=== PATIENT | male | born 1980 | race Caucasian/White ===

== ENCOUNTER 2020-08-29 05:00 | Inpatient (IN) | payer MEDICAID, OTHER, SELFPAY ==
[2020-08-29] VITALS (10 sets, daily range): BP systolic 108–146; BP diastolic 70–87; PULSE 72–92; RESP 14–18; TEMP 36.6–37.2; O2SAT 95–99; BMI 27.4
--- NOTE | 2020-08-29 05:29 | ED.PSYCH ---
HPI - Psych General Chief Complaint: Psychiatric Symptoms Stated Complaint: CRISIS Time Seen by Provider: 08/29/20 05:07 Source: patient and software engineer mobile Mode of arrival: ambulatory Limitations: no limitations History of Present Illness HPI Narrative: This is a 40-year-old male who presents with complaints of suicidal ideation and depression as well as anxiety and states that he has been consuming alcohol prior to arrival. Patient states he is been admitted multiple times and states his plan would be to choke himself or use any means necessary to take himself out of this life. He states he is very sad and depressed regarding the fact that the majority of his family lives in [place]. He states he has not been taking his prescribed medications because he has been abusing alcohol. Related Data Allergies Allergy/AdvReac Type Severity Reaction Status Date / Time Penicillins [PENICILLINS] Allergy Unknown UNKNOWN Verified 08/29/20 05:15 Review of Systems Review of Systems: And a positives and negatives as stated in HPI 10 point review of systems otherwise negative. PMFSH Past Medical History Source: nursing notes reviewed Social History Social History Advance Directives: No Advance Directives Information Provided: No Physical Exam Vital Signs: Vital Signs: Last Vital Signs Temp 98.4 F 08/29/20 05:15 Pulse 88 08/29/20 06:00 Resp 16 08/29/20 06:00 BP 140/70 H 08/29/20 06:00 Pulse Ox 98 08/29/20 06:00 Body Mass Index 27.4 VITAL SIGNS: Reviewed. GENERAL: Well developed, well nourished, in no acute distress. HEAD: Normocephalic/atraumatic, EYES: PERRLA, EOMI intact without pain, no nystagmus/pallor/icterus noted EARS: Ext canals without abnormality, TMs non-bulging and non-erythematous NOSE: Nares patent bilateral OROPHARYNX: no oral lesions noted, posterior pharynx clear and non-erythematous without noted tonsillar enlargement/erythema/exudates NECK: Supple, no adenopathy LUNGS: Normal breath sounds. No adventitious sounds or accessory muscle use. SpO2<98> CARDIOVASCULAR: Regular rate and rhythm without noted murmurs, no JVD or lower extremity edema. ABDOMEN: Soft, non-tender, non-distended with bowel sounds. No rigidity. No guarding. No palpable masses or hernias noted MUSCULOSKELETAL: No tenderness, deformities, or effusions noted on gross inspection. EXTREMITIES: No cyanosis, clubbing or edema. SKIN: Inspection of the skin reveals no rashes, ulcerations, jaundice, pallor, or petechiae. NEUROLOGIC: Alert and oriented x 4. Strength and sensation to light touch were grossly intact x 4. Course Course Course Narrative: This is a 40-year-old male with history and clinical presentation consistent with depression and substance abuse to include alcohol. On review of prior documentation he was last seen at our facility 03/12/2020 and was admitted to and subsequently discharged 03/19/2020. Patient was made Section-12 and placed on one-to-one. All investigations were reviewed other than noted transaminemia consistent with patient's alcohol use. Urinalysis is negative, U tox is positive for cocaine, and BAL-211. Patient is otherwise medically cleared for further evaluation by the crisis team. Signed out to Dr Reid: CALLY, KELY pending, Medically cleared MDM - Psych Restraints Face to Face Assessment: Face to Face Assessment: Current Situation: After assessment of the patient, a review of the pertinent medical record and a discussion with nursing staff, I feel the patient requires a restrain intervention. Reaction To: [] Medical Condition: [] Behavioral State: [] Continued Need: [] Lab Data Result diagrams: 08/29/20 05:44 08/29/20 05:44 Labs: Lab Results 08/29/20 08/29/20 08/29/20 Range/Units 05:44 05:44 05:44 WBC 5.6 (4.8-10.8) X10*3/uL RBC 5.06 (4.60-5.80) X10*6/uL Hgb 16.7 (14.0-18.0) g/dl Hct 46.2 (42-52) % MCV 91.3 (80-98) fL MCH 33.0 (27.0-33.0) pg MCHC 36.1 H (31.0-36.0) g/dl RDW 13.5 (11.0-16.0) % Plt Count 276 (160-400) X10*3/uL MPV 9.3 L (9.4-12.4) fL Immature Gran % (Auto) 0.2 (0.0-0.4) % Neut % (Auto) 47.1 (45-73) % Lymph % (Auto) 38.4 (20-40) % [place] % (Auto) 10.4 (2-11) % Eos % (Auto) 3.4 (0-4) % Baso % (Auto) 0.5 (0-2) % Lymph # (Auto) 2.2 (1.2-4.9) X10*3/uL [place] # (Auto) 0.6 (0.1-1.2) X10*3/uL Eos # (Auto) 0.2 (0.0-0.4) X10*3/uL Baso # (Auto) 0.0 (0.0-0.2) X10*3/uL Abs Immat Gran (auto) 0.01 (0.00-0.03) X10*3/uL Absolute Neuts (auto) 2.6 (2.0-8.3) X10*3/uL Absolute Nucleated RBC 0.000 (0.0-0.012) X10*3/uL Nucleated RBC % (auto) 0.0 (0.0-0.2) /100WBC Sodium 140 (135-145) mmol/L Potassium 4.1 (3.3-5.1) mmol/l Chloride 101 (96-108) mmol/L Carbon Dioxide 26 (22-29) mmol/L Anion Gap 17 (12-20) BUN 3 L (9-16) mg/dL Creatinine 0.80 (0.5-1.4) mg/dL Estim Creat Clear Calc 106.2 Estimated GFR > 60 Random Glucose 124 H (60-115) mg/dL Calcium 8.8 (8.4-10.2) mg/dL Total Bilirubin 0.7 (0.0-1.0) mg/dL AST 59 H (5-37) U/L ALT 61 H (0-40) U/L Alkaline Phosphatase 80 (39-117) U/L Total Protein 8.6 H (6.5-8.0) g/dL Albumin 4.6 (3.5-5.0) g/dL Urine Color Urine Appearance Urine pH (5.0-8.0) Ur Specific [place] (1.005-1.025) Urine Protein (NEG-TRACE) MG/DL Urine Glucose (UA) (NEG) MG/DL Urine Ketones (NEG) MG/DL Urine Blood (NEG) Urine Nitrite (NEG) Ur Leukocyte Esterase (NEG) Urine Opiates Screen (Not Detect) Ur Barbiturates Screen (Not Detect) Ur Phencyclidine Scrn (Not Detect) Ur Amphetamines Screen (Not Detect) U Benzodiazepines Scrn (Not Detect) Urine Cocaine Screen (Not Detect) U Marijuana (THC) Screen (Not Detect) Ethyl Alcohol 211 mg/dL 08/29/20 08/29/20 Range/Units 05:49 05:49 WBC (4.8-10.8) X10*3/uL RBC (4.60-5.80) X10*6/uL Hgb (14.0-18.0) g/dl Hct (42-52) % MCV (80-98) fL MCH (27.0-33.0) pg MCHC (31.0-36.0) g/dl RDW (11.0-16.0) % Plt Count (160-400) X10*3/uL MPV (9.4-12.4) fL Immature Gran % (Auto) (0.0-0.4) % Neut % (Auto) (45-73) % Lymph % (Auto) (20-40) % [place] % (Auto) (2-11) % Eos % (Auto) (0-4) % Baso % (Auto) (0-2) % Lymph # (Auto) (1.2-4.9) X10*3/uL [place] # (Auto) (0.1-1.2) X10*3/uL Eos # (Auto) (0.0-0.4) X10*3/uL Baso # (Auto) (0.0-0.2) X10*3/uL Abs Immat Gran (auto) (0.00-0.03) X10*3/uL Absolute Neuts (auto) (2.0-8.3) X10*3/uL Absolute Nucleated RBC (0.0-0.012) X10*3/uL Nucleated RBC % (auto) (0.0-0.2) /100WBC Sodium (135-145) mmol/L Potassium (3.3-5.1) mmol/l Chloride (96-108) mmol/L Carbon Dioxide (22-29) mmol/L Anion Gap (12-20) BUN (9-16) mg/dL Creatinine (0.5-1.4) mg/dL Estim Creat Clear Calc Estimated GFR Random Glucose (60-115) mg/dL Calcium (8.4-10.2) mg/dL Total Bilirubin (0.0-1.0) mg/dL AST (5-37) U/L ALT (0-40) U/L Alkaline Phosphatase (39-117) U/L Total Protein (6.5-8.0) g/dL Albumin (3.5-5.0) g/dL Urine Color YELLOW Urine Appearance CLEAR Urine pH 6.0 (5.0-8.0) Ur Specific [place] 1.010 (1.005-1.025) Urine Protein NEG (NEG-TRACE) MG/DL Urine Glucose (UA) NEG (NEG) MG/DL Urine Ketones NEG (NEG) MG/DL Urine Blood NEG (NEG) Urine Nitrite NEG (NEG) Ur Leukocyte Esterase NEG (NEG) Urine Opiates Screen Not Detected (Not Detect) Ur Barbiturates Screen Not Detected (Not Detect) Ur Phencyclidine Scrn Not Detected (Not Detect) Ur Amphetamines Screen Not Detected (Not Detect) U Benzodiazepines Scrn Not Detected (Not Detect) Urine Cocaine Screen POSITIVE H (Not Detect) U Marijuana (THC) Screen Not Detected (Not Detect) Ethyl Alcohol mg/dL
[2020-08-29 05:49] LABS: Basophils Percent Auto 0.5 % (0-2); Eosinophils Absolute Auto 0.2 X10*3/uL (0.0-0.4); Eosinophils Percent Auto 3.4 % (0-4); Hematocrit 46.2 % (42-52); Hemoglobin 16.7 g/dl (14.0-18.0); Imm Gran Abs Auto 0.01 X10*3/uL (0.00-0.03); Imm Gran Pct Auto 0.2 % (0.0-0.4); Lymphocytes Absolute Auto 2.2 X10*3/uL (1.2-4.9); Lymphocytes Percent Auto 38.4 % (20-40); MANUAL DIFF FLAG NO; Mean Corpuscular HGB Conc 36.1 g/dl (31.0-36.0); Mean Corpuscular Volume 91.3 fL (80-98); Mean Platelet Volume 9.3 fL (9.4-12.4); Monocytes Absolute Auto 0.6 X10*3/uL (0.1-1.2); Monocytes Percent Auto 10.4 % (2-11); Neutrophils Absolute Auto 2.6 X10*3/uL (2.0-8.3); Neutrophils Percent Auto 47.1 % (45-73); Platelet Count 276 X10*3/uL (160-400); Red Blood Count 5.06 X10*6/uL (4.60-5.80); Red Cell Distribution Width 13.5 % (11.0-16.0); White Blood Count 5.6 X10*3/uL (4.8-10.8)
[2020-08-29 06:01] LABS: Appearance Urine CLEAR; Color Urine YELLOW; Glucose Urine UA NEG (NEG); Leukocyte Esterase Urine NEG (NEG); Nitrite Urine NEG (NEG); UACC Culture Trigger NO; Urine Blood NEG (NEG); Urine Ketones NEG (NEG); Urine Protein NEG (NEG-TRACE)
[2020-08-29 06:08] LABS: Amphetamine Screen Urine Not Detected (Not Detect); Barbiturates, Urine Not Detected (Not Detect); Benzodiazepines Screen Urine Not Detected (Not Detect); Cannabinoid Screen Urine Not Detected (Not Detect); Cocaine Screen Urine POSITIVE (Not Detect); Opiate Screen Urine Not Detected (Not Detect); Phencyclidine Screen Urine Not Detected (Not Detect)
[2020-08-29 06:20] LABS: Ethanol 211 mg/dL
[2020-08-29 06:25] LABS: Alanine Aminotransferase 61 U/L (0-40); Albumin Level 4.6 g/dL (3.5-5.0); Alkaline Phosphatase 80 U/L (39-117); Anion Gap 17 (12-20); Aspartate Amino Transferase 59 U/L (5-37); Bilirubin Total 0.7 mg/dL (0.0-1.0); Blood Urea Nitrogen 3 mg/dL (9-16); Calcium 8.8 mg/dL (8.4-10.2); Carbon Dioxide 26 mmol/L (22-29); Chloride 101 mmol/L (96-108); Creatinine Clr Calc Pharmacy 106.2; Estimated Glomerular Filt Rate > 60; Glucose Random 124 mg/dL (60-115); Potassium 4.1 mmol/l (3.3-5.1); Sodium 140 mmol/L (135-145); Total Protein 8.6 g/dL (6.5-8.0)
--- NOTE | 2020-08-29 07:26 | PC.NURSE ---
pt is sleeping, resp are equal and non labored awaiting bhn eval
[2020-08-29 08:50] LABS: COVID-19 Test Negative (Negative)
--- NOTE | 2020-08-29 11:03 | PC.NURSE ---
Verified consult w/ bhn. bhn states they are unsure when they will have staff available to consult. Pt resting in stretcher at this time, no distress apparent.
--- NOTE | 2020-08-29 15:45 | PC.NURSE ---
[facility] at bedside.
--- NOTE | 2020-08-29 16:39 | PC.NURSE ---
Per [facility] pt is section 12 inpatient bedsearch. This rn attempting to do med rec at this time, pharmacy closed and pt is poor historian.
[2020-08-29] MEDS: LORazepam 1 MG TABLET PO (16:51)
--- NOTE | 2020-08-29 16:55 | PC.NURSE ---
Pt tearful, states he feels very anxious and depressed- given 1mg po ativan, offered snack and other food options-declined. Pt declined to eat lunch as well.
--- NOTE | 2020-08-29 17:04 | PC.NURSE ---
Pt unable to tell this rn names and doses of medication but says its the same as last time , clarified w/ business law professor pt is referring to visit in February. Pt pharmacy is closed. Med rec completed off last admission discharge.
[2020-08-29] MEDS: hydrOXYzine HCL 25 MG TABLET 75 MG PO (21:13)
[2020-08-29] MEDS: cloNIDine HCL 0.1 MG TABLET PO (21:13)
--- NOTE | 2020-08-29 21:17 | PC.NURSE ---
Pt denies complaints or needs at this time, given 2 cups of water and drank both. declined offers for food. pending inpatient bedsearch
--- NOTE | 2020-08-29 23:53 | PC.NURSE ---
REPORT TAKEN FROM SOPHIA PHAM, FIRST CONTACT WITH PT. RESTING IN BED EYES CLOSED SKIN PWD RESPIRATIONS EVEN UNLABORED. PO AT BEDSIDE FOR SAFETY. INPT BEDSEARCH CONTINUES.
--- NOTE | 2020-08-30 01:09 | PC.NURSE ---
PT CONTINUES TO REST IN BED SKIN PWD RESPIRATIONS EVEN UNLABORED. NO DISTRESS NOTED. PO AT BEDSIDE FOR SAFETY. INPT BEDSEARCH CONTINUES.
[2020-08-30 04:00] VITALS: RESP 16
--- NOTE | 2020-08-30 04:34 | PC.NURSE ---
PT RESTING IN BED EYES CLOSED, SKIN PWD RESPIRATIONS EVEN UNLABORED. PO AT BEDSIDE FOR SAFETY, INPT BEDSEARCH CONTINUES.
--- NOTE | 2020-08-30 05:34 | PC.NURSE ---
AMB TO BATHROOM WITH STEADY GAIT, OFFERS NO COMPLAINTS AT THIS TIME. PO AT BEDSIDE FOR SAFETY. INPT BEDSEARCH CONTINUES.
[2020-08-30 07:04] VITALS: RESP 15
[2020-08-30 09:00] VITALS: BP 113/72; PULSE 68
[2020-08-30] MEDS: Metoprolol Succinate ER 25 MG TAB.ER.24H PO (09:00)
[2020-08-30] MEDS: cloNIDine HCL 0.1 MG TABLET PO ×2 (09:00→20:06)
[2020-08-30] MEDS: Omeprazole 20 MG CAPSULE.DR PO (09:00)
[2020-08-30] MEDS: Cyanocobalamin (Vitamin B-12) 1,000 MCG TABLET 1000 MCG PO (09:00)
[2020-08-30 09:02] VITALS: BP 113/72; PULSE 69; RESP 16; O2SAT 98
--- NOTE | 2020-08-30 11:41 | PC.NURSE ---
Pt ambulated to pod with steady gait, denies complaints.
[2020-08-30] MEDS: LORazepam 1 MG TABLET PO ×2 (18:26→21:48)
[2020-08-30 20:06] VITALS: BP 113/75; PULSE 86
[2020-08-30] MEDS: hydrOXYzine HCL 25 MG TABLET 75 MG PO (20:07)
[2020-08-31 00:21] VITALS: BP 106/93; PULSE 83; RESP 17; TEMP 36.4; O2SAT 96
--- NOTE | 2020-08-31 00:44 | PC.NURSE ---
08/30/2020 1900: pt sleeping at this time. skin p/w/d. airway patent. 2114: Night meds given. 2147: reporting anxiety medicated with prn. 0: sleeping at this time. skin p/w/d. airway patent.
[2020-08-31] MEDS: LORazepam 1 MG TABLET PO ×2 (04:36→17:12)
--- NOTE | 2020-08-31 05:04 | PC.NURSE ---
08/31/20 0100: Pt sleeping at this time. airway patent. 0300: pt sleeping at this time. skin p/w/d. 0500: patient being montiored for effect of prn anxiety medication. denies further needs.
--- NOTE | 2020-08-31 07:01 | PC.NURSE ---
Report received. PT is sleeping in bed. Breathing is even and unlabored. Inpatient bed search in progress.
[2020-08-31 08:25] VITALS: BP 114/89; PULSE 88
[2020-08-31] MEDS: Metoprolol Succinate ER 25 MG TAB.ER.24H PO (08:25)
[2020-08-31 08:27] VITALS: BP 114/89; PULSE 88
[2020-08-31] MEDS: Omeprazole 20 MG CAPSULE.DR PO (08:27)
[2020-08-31] MEDS: cloNIDine HCL 0.1 MG TABLET PO ×2 (08:27→21:29)
[2020-08-31] MEDS: Cyanocobalamin (Vitamin B-12) 1,000 MCG TABLET 1000 MCG PO (08:27)
[2020-08-31 08:30] VITALS: BP 114/89; PULSE 88; RESP 17; TEMP 36.6; O2SAT 99
--- NOTE | 2020-08-31 11:23 | PC.NURSE ---
Addendum entered by Jose Juan Fernandez 08/31/20 11:31: Seen by [facility] for [facility]. Patient will remain inpatient bed search. Original Note: Seen by Shira for [facility].
--- NOTE | 2020-08-31 17:35 | ECG_ITS ---
Test Reason : MEDCLEARANCEE Blood Pressure : / mmHG Vent. Rate : 073 BPM Atrial Rate : 073 BPM P-R Int : 174 ms QRS Dur : 094 ms QT Int : 374 ms P-R-T Axes : 056 043 020 degrees QTc Int : 412 ms Normal sinus rhythm with sinus arrhythmia Normal ECG When compared with ECG of 12-MAR-2020 22:25, No significant change was found Referred By: Mal Hernandez Electronically Signed By:Bhaskar Copeland
[2020-08-31] MEDS: LORazepam 1 MG TABLET 0.5 MG PO (19:30)
[2020-08-31] MEDS: hydrOXYzine HCL 25 MG TABLET 75 MG PO (21:28)
[2020-08-31 21:29] VITALS: BP 120/69; PULSE 85
[2020-08-31] MEDS: LORazepam 0.5 MG TABLET PO (23:32)
--- NOTE | 2020-08-31 23:35 | PC.ADMIT ---
Patient is a 40 year old single Maltese speaking male admitted as a CV admission to at 1840 and placed on 5 minute safety checks. Patient was a bit anxious and irritable. He had been in the [facility] ED x 2 days waiting on a bed on . He had presented to the ED with SI to choke himself. He also reported decreased sleep and appetite. He has a long history of multiple admissions to and other local units. He had a history of drinking ETOH and using rack/cocaine. His BAL in the ED was 211. Patient was somehwhat sullen on approach and requested Ativan. His admission was reviewed and orders were obtained. Lupe Coyne APRN reviewed medications and orders were written. Patient will be on 15 minute safety checks. Paperwork completed.
[2020-09-01] MEDS: hydrOXYzine HCL 25 MG TABLET PO (01:23)
[2020-09-01 04:55] VITALS: BP 103/61; PULSE 101; RESP 18; TEMP 36.4; O2SAT 98
[2020-09-01] MEDS: LORazepam 0.5 MG TABLET PO ×3 (04:58→16:58)
[2020-09-01 09:08] VITALS: BP 106/68; PULSE 77
[2020-09-01] MEDS: Omeprazole 20 MG CAPSULE.DR PO (09:08)
[2020-09-01] MEDS: Metoprolol Succinate ER 25 MG TAB.ER.24H PO (09:08)
[2020-09-01] MEDS: Cyanocobalamin (Vitamin B-12) 1,000 MCG TABLET 1000 MCG PO (09:08)
[2020-09-01] MEDS: cloNIDine HCL 0.1 MG TABLET PO ×2 (09:09→20:14)
[2020-09-01] MEDS: Flu Vacc QS2020-21(6mos up)/PF 0.5 ML SYRINGE IM (11:29)
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
[2020-09-01] MEDS: Sertraline HCL 50 MG TABLET PO (13:25)
[2020-09-01 18:00] VITALS: BP 114/65; PULSE 70; TEMP 37.4
[2020-09-01] MEDS: Acetaminophen 325 MG TABLET PO (18:09)
[2020-09-01] MEDS: OLANZapine 10 MG TABLET PO (20:13)
[2020-09-01 20:14] VITALS: BP 114/65; PULSE 70
[2020-09-01] MEDS: Prazosin HCL 1 MG CAPSULE PO (20:14)
[2020-09-01] MEDS: Topiramate 25 MG TABLET PO (20:15)
[2020-09-01] MEDS: hydrOXYzine HCL 25 MG TABLET 75 MG PO (20:15)
[2020-09-02 06:40] VITALS: BP 93/55; PULSE 54; RESP 18; TEMP 36.7; O2SAT 97
[2020-09-02 10:06] VITALS: BP 103/65; PULSE 77
[2020-09-02] MEDS: Omeprazole 20 MG CAPSULE.DR PO (10:06)
[2020-09-02] MEDS: Sertraline HCL 50 MG TABLET PO (10:06)
[2020-09-02] MEDS: Metoprolol Succinate ER 25 MG TAB.ER.24H PO (10:06)
[2020-09-02] MEDS: Cyanocobalamin (Vitamin B-12) 1,000 MCG TABLET 1000 MCG PO (10:06)
[2020-09-02] MEDS: Topiramate 25 MG TABLET PO (10:07)
--- NOTE | 2020-09-02 11:36 | HO.PSYCHPN ---
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 He reports he was able to sleep last evening and nightmares have decreased. BP this a.m 93/55 54-with addition of Prazosin. Will discontinue Clonidine, continue Prazosin, Metoprolol and re-evaluate. In our meeting on 09/01, pt was asked by Rohit FLORES if he had interest in [facility] services. He declined at that time, however, today, reports he would like to follow up with rehab, residential services upon discharge and is interested in [facility] services. Tolerated Olanzapine last evening. Re-review of diagnostics, will add MVI and repeat lipids, TSH. Medication Compliance: Yes Side effects from medications: No Attending Groups: Yes (minimal participation on his first day.) Review of Systems Constitutional: Reports as per HPI and Reports fatigue Cardiovascular: Reports other (hypotensive this a.m.) Reports behavioral changes Psychiatric: Reports anxiety, Reports behavioral changes, Reports hopelessness, Reports anhedonia and Reports suicidal ideation (resolving SI, denied during eval on 09/01/20.) Endocrine: Reports fatigue Mental Status Exam Mental Status Exam Patient Appearance: Well Grooomed, Fatigued and Appropriate Patient Orientation: Person, Place, Time and Situation Level of Consciousness: Awake, Appropriate and Alert Patient Behavior: Appropriate, Talkative, Cooperative, Anxious and Good Eye Contact Mood Description: Withdrawn, Depressed, Anxious and Flat Affect Description: Flat Patient Cognition Impaired: Yes Ability to Follow Directions: Good Speech Pattern: Clear, Appropriate, Spontaneous Speech and Coherent Memory Description: Intact and Immediate Intact Hallucinations: None Delusions: Not Present Thought Process: Distracted and Rumination Thought Content: positive for Depue, positive for Circumstantial, positive for Perseveration and positive for Suicidal Ideation (resolving, beginning to work on his plan of care.) Depressive Symptoms: Increased Anxiety, Hopelessness, Isolating-Friends/Family, Unhappiness, Increased Fatigue, Thoughts of /Suicide (resolving) and Loss of Energy Judgement: Poor Diagnostics Vital Signs (24Hr): Vital Signs - 24 hr 09/01/20 18:00 09/01/20 20:14 09/02/20 06:40 Temperature 99.4 F 98.0 F Pulse Rate 70 70 54 Respiratory Rate 18 Blood Pressure 114/65 114/65 93/55 L Pulse Oximetry 97 09/02/20 10:06 Temperature Pulse Rate 77 Respiratory Rate Blood Pressure 103/65 Pulse Oximetry Body Mass Index 27.4 Labs Results: 08/29/20 05:44 08/29/20 05:44 Labs: AST/ALT decreased from 02/2020 admission. T. Protein decreased from 02/2020 admission. Medications Medications Current Medications Generic Name Dose Route Start Last Admin Trade Name Freq PRN Reason Stop Dose Admin Acetaminophen 325 mg 08/31/20 19:00 09/01/20 18:09 Acetaminophen 325 Mg Tablet PO 325 mg Q6H PRN Administration Headache/Pain Mild Scale (1-3) Al Hydroxide/Mg Hydroxide 30 ml 08/31/20 19:00 Magnesium Hydrox/Alum Hydrox 30 Ml Oral.Susp PO Q6H PRN Heartburn/Nausea Cyanocobalamin 1,000 mcg 08/30/20 09:00 09/02/20 10:06 Cyanocobalamin (Vitamin B-12) 1,000 Mcg Tablet PO 1,000 mcg DAILY CLARITA Administration Hydroxyzine HCl 75 mg 08/29/20 21:00 09/01/20 20:15 Hydroxyzine Hcl 25 Mg Tablet PO 75 mg BEDTIME CLARITA Administration Hydroxyzine HCl 25 mg 08/31/20 19:00 09/01/20 01:23 Hydroxyzine Hcl 25 Mg Tablet PO 25 mg BEDTIME PRN Administration Anxiety Lorazepam 0.5 mg 08/31/20 19:32 09/01/20 16:58 Lorazepam 0.5 Mg Tablet PO 0.5 mg Q3H PRN Administration Anxiety Magnesium Hydroxide 30 ml 08/31/20 19:00 Milk Of Magnesia 30 Ml Oral.Susp PO DAILY PRN Constipation Metoprolol Succinate 25 mg 08/30/20 09:00 09/02/20 10:06 Metoprolol Succinate Er 25 Mg Tab.Er.24h PO 25 mg DAILY CLARITA Administration Protocol Multivitamins/Minerals 1 tab 09/02/20 09:00 09/02/20 10:32 Multivitamin With Minerals Tablet PO 1 tab DAILY CLARITA Administration Nicotine 14 mg 08/31/20 19:00 Nicotine 14 Mg Patch.Td24 TRANSDERMA DAILY PRN Nicotine Cravings Nicotine Polacrilex 2 mg 08/31/20 19:00 Nicotine Polacrilex 2 Mg Gum BUCCAL Q2H PRN Nicotine Cravings Olanzapine 10 mg 09/01/20 21:00 09/01/20 20:13 Olanzapine 10 Mg Tablet PO 10 mg BEDTIME CLARITA Administration Omeprazole 20 mg 08/30/20 09:00 09/02/20 10:06 Omeprazole 20 Mg Capsule.Dr PO 20 mg DAILY CLARITA Administration Prazosin HCl 1 mg 09/01/20 21:00 09/01/20 20:14 Prazosin Hcl 1 Mg Capsule PO 1 mg BEDTIME CLARITA Administration Protocol Sertraline HCl 50 mg 09/02/20 09:00 09/02/20 10:06 Sertraline Hcl 50 Mg Tablet PO 50 mg DAILY CLARITA Administration Topiramate 25 mg 09/01/20 20:00 09/02/20 10:07 Topiramate 25 Mg Tablet PO 25 mg DAILY CLARITA Administration Trazodone HCl 50 mg 08/31/20 19:00 Trazodone Hcl 50 Mg Tablet PO BEDTIME PRN Insomnia Allergies Allergies Allergy/AdvReac Type Severity Reaction Status Date / Time Penicillins [PENICILLINS] Allergy Unknown UNKNOWN Verified 08/29/20 05:15 Assessment & Plan Assessment & Plan (1) Schizophrenia, acute: Status: Acute Code(s): F23 - Brief psychotic disorder Assessment and Plan: -Continue Olanzapine 10 mg hs -Begin Olanzapine 2.5 mg bid prn agitation/anxiety to continue to work on symptom mgt. -Will initiate [facility] application with Social Service Team -Labs: TSH, Lipids (2) Severe recurrent major depression: Status: Acute Code(s): F33.2 - Major depressive disorder, recurrent severe without psychotic features Assessment and Plan: -Continue Sertraline, consider titration as pt tolerates dosing. (3) Cocaine abuse: Status: Acute Code(s): F14.10 - Cocaine abuse, uncomplicated Assessment and Plan: -Continue Topiramate (4) Alcohol abuse: Status: Acute Code(s): F10.10 - Alcohol abuse, uncomplicated Assessment and Plan: -Pt requests residential/CSS placement upon discharge. Will discuss with Social Service Team. -Begin MVI with Minerals, 1 tablet daily (5) Hypotension: Status: Acute Code(s): I95.9 - Hypotension, unspecified Assessment and Plan: -Discontinue Clonidine -Continue Prazosin, Metoprolol Greater than 50% of the session was spent on counseling and/or coordination of care
[2020-09-02 16:20] LABS: Cholesterol 231 mg/dL; HDL Cholesterol 31 mg/dL; Triglycerides 490 mg/dL
[2020-09-02 16:48] LABS: Thyroid Stimulating Hormone 2.25 uIU/mL (0.32-4.0)
[2020-09-02] MEDS: LORazepam 0.5 MG TABLET PO (18:38)
[2020-09-02] MEDS: Acetaminophen 325 MG TABLET PO (18:40)
[2020-09-02] MEDS: OLANZapine 2.5 MG TABLET PO (19:54)
[2020-09-02 21:35] VITALS: BP 107/67; PULSE 64; TEMP 36.9
[2020-09-02] MEDS: OLANZapine 10 MG TABLET PO (21:40)
[2020-09-02] MEDS: hydrOXYzine HCL 25 MG TABLET 75 MG PO (21:40)
[2020-09-02 21:41] VITALS: BP 107/67; PULSE 64
[2020-09-02] MEDS: Prazosin HCL 1 MG CAPSULE PO (21:41)
[2020-09-03 06:30] VITALS: BP 116/65; PULSE 64; RESP 16; TEMP 36.6; O2SAT 97
[2020-09-03 07:00] VITALS: BMI 28.6
[2020-09-03 09:04] VITALS: BP 116/65; PULSE 64
[2020-09-03] MEDS: Metoprolol Succinate ER 25 MG TAB.ER.24H PO (09:04)
[2020-09-03] MEDS: Omeprazole 20 MG CAPSULE.DR PO (09:04)
[2020-09-03] MEDS: Sertraline HCL 50 MG TABLET PO (09:04)
[2020-09-03] MEDS: Cyanocobalamin (Vitamin B-12) 1,000 MCG TABLET 1000 MCG PO (09:04)
[2020-09-03] MEDS: Topiramate 25 MG TABLET PO (09:04)
[2020-09-03] MEDS: OLANZapine 2.5 MG TABLET PO (11:12)
[2020-09-03] MEDS: LORazepam 0.5 MG TABLET PO ×3 (11:12→23:47)
--- NOTE | 2020-09-03 16:28 | P.PNPSI_ITS ---
Subjective Subjective Date of Service: 09/03/20 Reason For Visit: Schizophrenia, SI, Alcohol,Cocaine Abuse Subjective Notes: Conditional Voluntary Interim History: Reports anxiety, depression, nightmares are issues that continue to need work. Able to sleep. Present and available in milieu. Medication Compliance: Yes Side effects from medications: No Attending Groups: Yes Review of Systems Reports behavioral changes Psychiatric: Reports anxiety, Reports behavioral changes, Reports depression and Reports other (nightmares) Mental Status Exam Mental Status Exam Patient Appearance: Well Grooomed and Appropriate Patient Orientation: Person, Place, Time and Situation Level of Consciousness: Awake and Alert Patient Behavior: Appropriate and Talkative Mood Description: Depressed and Anxious Affect Description: Constricted Patient Cognition Impaired: No Ability to Follow Directions: Good Speech Pattern: Appropriate (Burring Wheel Operator required) Memory Description: Intact Hallucinations: None Delusions: Not Present Thought Process: Intact Thought Content: positive for Intact Depressive Symptoms: Increased Anxiety Judgement: Fair Diagnostics Vital Signs (24Hr): Vital Signs - 24 hr 09/02/20 21:35 09/02/20 21:41 09/03/20 06:30 Temperature 98.5 F 97.9 F Pulse Rate 64 64 64 Respiratory Rate 16 Blood Pressure 107/67 107/67 116/65 Pulse Oximetry 97 09/03/20 09:04 Temperature Pulse Rate 64 Respiratory Rate Blood Pressure 116/65 Pulse Oximetry Body Mass Index 28.6 Labs Results: 08/29/20 05:44 08/29/20 05:44 Labs: Laboratory Results - last 48 hr 09/02/20 15:40 Triglycerides 490 Cholesterol 231 LDL Cholesterol, Calc TNP HDL Cholesterol 31 TSH 2.25 Medications Medications Current Medications Generic Name Dose Route Start Last Admin Trade Name Ronaldoq PRN Reason Stop Dose Admin Acetaminophen 325 mg 08/31/20 19:00 09/02/20 18:40 Acetaminophen 325 Mg Tablet PO 325 mg Q6H PRN Administration Headache/Pain Mild Scale (1-3) Al Hydroxide/Mg Hydroxide 30 ml 08/31/20 19:00 Magnesium Hydrox/Alum Hydrox 30 Ml Oral.Susp PO Q6H PRN Heartburn/Nausea Cyanocobalamin 1,000 mcg 08/30/20 09:00 09/03/20 09:04 Cyanocobalamin (Vitamin B-12) 1,000 Mcg Tablet PO 1,000 mcg DAILY CLARITA Administration Hydroxyzine HCl 75 mg 08/29/20 21:00 09/02/20 21:40 Hydroxyzine Hcl 25 Mg Tablet PO 75 mg BEDTIME CLARITA Administration Hydroxyzine HCl 25 mg 08/31/20 19:00 09/01/20 01:23 Hydroxyzine Hcl 25 Mg Tablet PO 25 mg BEDTIME PRN Administration Anxiety Lorazepam 0.5 mg 08/31/20 19:32 09/03/20 11:12 Lorazepam 0.5 Mg Tablet PO 0.5 mg Q3H PRN Administration Anxiety Magnesium Hydroxide 30 ml 08/31/20 19:00 Milk Of Magnesia 30 Ml Oral.Susp PO DAILY PRN Constipation Metoprolol Succinate 25 mg 08/30/20 09:00 09/03/20 09:04 Metoprolol Succinate Er 25 Mg Tab.Er.24h PO 25 mg DAILY CLARITA Administration Protocol Multivitamins/Minerals 1 tab 09/02/20 09:00 09/03/20 09:04 Multivitamin With Minerals Tablet PO 1 tab DAILY CLARITA Administration Nicotine 14 mg 08/31/20 19:00 Nicotine 14 Mg Patch.Td24 TRANSDERMA DAILY PRN Nicotine Cravings Nicotine Polacrilex 2 mg 08/31/20 19:00 Nicotine Polacrilex 2 Mg Gum BUCCAL Q2H PRN Nicotine Cravings Olanzapine 10 mg 09/01/20 21:00 09/02/20 21:40 Olanzapine 10 Mg Tablet PO 10 mg BEDTIME CLARITA Administration Olanzapine 2.5 mg 09/02/20 12:17 09/03/20 11:12 Olanzapine 2.5 Mg Tablet PO 2.5 mg BID PRN Administration Agitation / Anxiety Omeprazole 20 mg 08/30/20 09:00 09/03/20 09:04 Omeprazole 20 Mg Capsule.Dr PO 20 mg DAILY CLARITA Administration Prazosin HCl 1 mg 09/01/20 21:00 09/02/20 21:41 Prazosin Hcl 1 Mg Capsule PO 1 mg BEDTIME CLARITA Administration Protocol Sertraline HCl 50 mg 09/02/20 09:00 09/03/20 09:04 Sertraline Hcl 50 Mg Tablet PO 50 mg DAILY CLARITA Administration Topiramate 25 mg 09/01/20 20:00 09/03/20 09:04 Topiramate 25 Mg Tablet PO 25 mg DAILY CLARITA Administration Trazodone HCl 50 mg 08/31/20 19:00 Trazodone Hcl 50 Mg Tablet PO BEDTIME PRN Insomnia Allergies Allergies Allergy/AdvReac Type Severity Reaction Status Date / Time Penicillins [PENICILLINS] Allergy Unknown UNKNOWN Verified 08/29/20 05:15 Assessment & Plan Assessment & Plan (1) Schizophrenia, acute: Status: Acute Code(s): F23 - Brief psychotic disorder Assessment and Plan: Discontinue Olanzapine Abilify 10 mg HS (2) Severe recurrent major depression: Status: Acute Code(s): F33.2 - Major depressive disorder, recurrent severe without psychotic features Assessment and Plan: - [facility] Application for services is completed by team -Increase Sertraline to 100 mg daily (3) Hypertriglyceridemia: Status: Acute Code(s): E78.1 - Pure hyperglyceridemia Assessment and Plan: Zyprexa change to Abilify Fenofibrate initiation (4) Alcohol abuse: Status: Acute Code(s): F10.10 - Alcohol abuse, uncomplicated Assessment and Plan: Team is working on CSS placement Greater than 50% of the session was spent on counseling and/or coordination of care Patient educated on: medication risk/benefits Informed Consent: further education needed
[2020-09-03 18:00] VITALS: BP 125/82; PULSE 73; TEMP 36.7
[2020-09-03] MEDS: Acetaminophen 325 MG TABLET PO (19:15)
[2020-09-03 19:58] VITALS: BP 103/63; PULSE 75
[2020-09-03] MEDS: Prazosin HCL 1 MG CAPSULE PO (19:58)
[2020-09-03] MEDS: ARIPiprazole 10 MG TABLET PO (19:59)
[2020-09-03] MEDS: hydrOXYzine HCL 25 MG TABLET 75 MG PO (20:13)
[2020-09-03] MEDS: hydrOXYzine HCL 25 MG TABLET PO (23:47)
[2020-09-04] MEDS: Acetaminophen 325 MG TABLET PO (01:32)
[2020-09-04 06:10] VITALS: RESP 16
[2020-09-04 08:22] VITALS: BP 103/63; PULSE 75
[2020-09-04] MEDS: Cyanocobalamin (Vitamin B-12) 1,000 MCG TABLET 1000 MCG PO (08:22)
[2020-09-04] MEDS: Topiramate 25 MG TABLET PO (08:22)
[2020-09-04] MEDS: Metoprolol Succinate ER 25 MG TAB.ER.24H PO (08:22)
[2020-09-04] MEDS: Omeprazole 20 MG CAPSULE.DR PO (08:22)
[2020-09-04] MEDS: Fenofibrate 54 MG TABLET PO (08:22)
[2020-09-04] MEDS: Sertraline HCL 100 MG TABLET PO (08:22)
[2020-09-04] MEDS: LORazepam 0.5 MG TABLET PO ×2 (10:52→20:06)
--- NOTE | 2020-09-04 11:16 | P.PNPSI_ITS ---
Subjective Subjective Date of Service: 09/04/20 Reason For Visit: Schizophrenia, SI, Alcohol,Cocaine Abuse Subjective Notes: Conditional Voluntary Interim History: Toni continues to report insomnia and nightmares. Team reports he is able to sleep, however is sleeping on evening time with difficulty at night. Today, he asks if he has a CSS placement at this time, however, social welfare research worker has not heard any new reports. Tolerating med changes of 09/03 thus far. Medication Compliance: Yes Side effects from medications: No Attending Groups: Intermittent Review of Systems Review of Systems Yes all other systems are reviewed and are negative; No unobtainable due to endotracheal tube, Unobtainable due to mental condition, Unobtainable due to mental status or Other Psychiatric: Reports abnormal sleep pattern, Reports anxiety, Reports depression and Reports other (nightmares) Mental Status Exam Mental Status Exam Patient Appearance: Well Grooomed and Appropriate Patient Orientation: Person, Place, Time and Situation Level of Consciousness: Awake, Appropriate and Alert Patient Behavior: Appropriate Mood Description: Calm and Anxious Affect Description: Flat Patient Cognition Impaired: No Ability to Follow Directions: Good Speech Pattern: Clear Memory Description: Intact Hallucinations: None Delusions: Not Present Thought Process: Intact Thought Content: positive for Intact Depressive Symptoms: Increased Anxiety and Difficulty Sleeping (per team, sleeping on evening time and awake during the night) Judgement: Poor Diagnostics Vital Signs (24Hr): Vital Signs - 24 hr 09/03/20 18:00 09/03/20 19:58 09/04/20 06:10 Temperature 98.1 F Pulse Rate 73 75 Respiratory Rate 16 Blood Pressure 125/82 103/63 09/04/20 08:22 Temperature Pulse Rate 75 Respiratory Rate Blood Pressure 103/63 Body Mass Index 28.6 Labs Results: 08/29/20 05:44 08/29/20 05:44 Labs: Laboratory Results - last 48 hr 09/02/20 15:40 Triglycerides 490 Cholesterol 231 LDL Cholesterol, Calc TNP HDL Cholesterol 31 TSH 2.25 Medications Medications Current Medications Generic Name Dose Route Start Last Admin Trade Name Freq PRN Reason Stop Dose Admin Acetaminophen 325 mg 08/31/20 19:00 09/04/20 01:32 Acetaminophen 325 Mg Tablet PO 325 mg Q6H PRN Administration Headache/Pain Mild Scale (1-3) Al Hydroxide/Mg Hydroxide 30 ml 08/31/20 19:00 Magnesium Hydrox/Alum Hydrox 30 Ml Oral.Susp PO Q6H PRN Heartburn/Nausea Aripiprazole 10 mg 09/03/20 21:00 09/03/20 19:59 Aripiprazole 10 Mg Tablet PO 10 mg BEDTIME CLARITA Administration Cyanocobalamin 1,000 mcg 08/30/20 09:00 09/04/20 08:22 Cyanocobalamin (Vitamin B-12) 1,000 Mcg Tablet PO 1,000 mcg DAILY CLARITA Administration Fenofibrate 54 mg 09/04/20 09:00 09/04/20 08:22 Fenofibrate 54 Mg Tablet PO 54 mg DAILY CLARITA Administration Hydroxyzine HCl 75 mg 08/29/20 21:00 09/03/20 20:13 Hydroxyzine Hcl 25 Mg Tablet PO 75 mg BEDTIME CLARITA Administration Hydroxyzine HCl 25 mg 08/31/20 19:00 09/03/20 23:47 Hydroxyzine Hcl 25 Mg Tablet PO 25 mg BEDTIME PRN Administration Anxiety Lorazepam 0.5 mg 08/31/20 19:32 09/04/20 10:52 Lorazepam 0.5 Mg Tablet PO 0.5 mg Q3H PRN Administration Anxiety Magnesium Hydroxide 30 ml 08/31/20 19:00 Milk Of Magnesia 30 Ml Oral.Susp PO DAILY PRN Constipation Metoprolol Succinate 25 mg 08/30/20 09:00 09/04/20 08:22 Metoprolol Succinate Er 25 Mg Tab.Er.24h PO 25 mg DAILY CLARITA Administration Protocol Multivitamins/Minerals 1 tab 09/02/20 09:00 09/04/20 08:22 Multivitamin With Minerals Tablet PO 1 tab DAILY CLARITA Administration Nicotine 14 mg 08/31/20 19:00 Nicotine 14 Mg Patch.Td24 TRANSDERMA DAILY PRN Nicotine Cravings Nicotine Polacrilex 2 mg 08/31/20 19:00 Nicotine Polacrilex 2 Mg Gum BUCCAL Q2H PRN Nicotine Cravings Omeprazole 20 mg 08/30/20 09:00 09/04/20 08:22 Omeprazole 20 Mg Capsule.Dr PO 20 mg DAILY CLARITA Administration Prazosin HCl 1 mg 09/01/20 21:00 09/03/20 19:58 Prazosin Hcl 1 Mg Capsule PO 1 mg BEDTIME CLARITA Administration Protocol Sertraline HCl 100 mg 09/04/20 09:00 09/04/20 08:22 Sertraline Hcl 100 Mg Tablet PO 100 mg DAILY CLARITA Administration Topiramate 25 mg 09/01/20 20:00 09/04/20 08:22 Topiramate 25 Mg Tablet PO 25 mg DAILY CLARITA Administration Trazodone HCl 50 mg 08/31/20 19:00 Trazodone Hcl 50 Mg Tablet PO BEDTIME PRN Insomnia Allergies Allergies Allergy/AdvReac Type Severity Reaction Status Date / Time Penicillins [PENICILLINS] Allergy Unknown UNKNOWN Verified 08/29/20 05:15 Assessment & Plan Assessment & Plan (1) Severe recurrent major depression: Status: Acute Code(s): F33.2 - Major depressive disorder, recurrent severe without psychotic features Assessment and Plan: -Continue Abilify, Sertraline (2) Schizophrenia, acute: Status: Acute Code(s): F23 - Brief psychotic disorder Assessment and Plan: -Increase Prazosin to 2 mg HS to manage sx of nightmares pt is reporting Greater than 50% of the session was spent on counseling and/or coordination of care Patient educated on: therapeutic strategies Informed Consent: further education needed Reason for contiued inpatient stay Substantial Risk for: harm to self, inability to function and rapid decompensa tion
[2020-09-04 18:00] VITALS: BP 126/73; PULSE 56; TEMP 36.3
[2020-09-04 20:05] VITALS: BP 108/69; PULSE 79
[2020-09-04] MEDS: Prazosin HCL 1 MG CAPSULE 2 MG PO (20:05)
[2020-09-04] MEDS: hydrOXYzine HCL 25 MG TABLET 75 MG PO (20:06)
[2020-09-04] MEDS: ARIPiprazole 10 MG TABLET PO (20:06)
[2020-09-04] MEDS: hydrOXYzine HCL 25 MG TABLET PO (23:07)
[2020-09-05 06:00] VITALS: BP 121/66; PULSE 65; TEMP 36.6
[2020-09-05 08:59] VITALS: BP 117/67; PULSE 95
[2020-09-05] MEDS: Omeprazole 20 MG CAPSULE.DR PO (08:59)
[2020-09-05] MEDS: Fenofibrate 54 MG TABLET PO (08:59)
[2020-09-05] MEDS: Sertraline HCL 100 MG TABLET PO (08:59)
[2020-09-05] MEDS: Topiramate 25 MG TABLET PO (08:59)
[2020-09-05] MEDS: Metoprolol Succinate ER 25 MG TAB.ER.24H PO (08:59)
[2020-09-05] MEDS: Cyanocobalamin (Vitamin B-12) 1,000 MCG TABLET 1000 MCG PO (08:59)
--- NOTE | 2020-09-05 12:06 | HO.PSYCHPN ---
Subjective Subjective Date of Service: 09/05/20 Reason For Visit: Schizophrenia, SI, Alcohol,Cocaine Abuse Interim History: Toni is still not sleeping at night but he is sleeping during ht day; staff working with pt to remain out of bed during the day. Tolerating med changes of 09/03 thus far. Review of Systems Review of Systems And a positives and negatives as stated in HPI 10 point review of systems otherwise negative. Reports behavioral changes Psychiatric: Reports behavioral changes Mental Status Exam Mental Status Exam Patient Appearance: Well Grooomed and Appropriate Patient Orientation: Person, Place, Time and Situation Level of Consciousness: Awake, Appropriate and Alert Patient Behavior: Appropriate Mood Description: Calm and Anxious Affect Description: Withdrawn and Flat Patient Cognition Impaired: No Ability to Follow Directions: Good Speech Pattern: Clear Memory Description: Intact Thought Process: Intact and Goal Oriented Thought Content: positive for Intact Depressive Symptoms: Difficulty Concentrating Judgement: Fair Diagnostics Vital Signs (24Hr): Vital Signs - 24 hr 09/04/20 18:00 09/04/20 20:05 09/05/20 06:00 Temperature 97.4 F 97.8 F Pulse Rate 56 79 65 Blood Pressure 126/73 108/69 121/66 09/05/20 08:59 Temperature Pulse Rate 95 Blood Pressure 117/67 Body Mass Index 28.6 Labs Results: 08/29/20 05:44 08/29/20 05:44 Medications Medications Current Medications Generic Name Dose Route Start Last Admin Trade Name Freq PRN Reason Stop Dose Admin Acetaminophen 325 mg 08/31/20 19:00 09/04/20 01:32 Acetaminophen 325 Mg Tablet PO 325 mg Q6H PRN Administration Headache/Pain Mild Scale (1-3) Al Hydroxide/Mg Hydroxide 30 ml 08/31/20 19:00 Magnesium Hydrox/Alum Hydrox 30 Ml Oral.Susp PO Q6H PRN Heartburn/Nausea Aripiprazole 10 mg 09/03/20 21:00 09/04/20 20:06 Aripiprazole 10 Mg Tablet PO 10 mg BEDTIME CLARITA Administration Cyanocobalamin 1,000 mcg 08/30/20 09:00 09/05/20 08:59 Cyanocobalamin (Vitamin B-12) 1,000 Mcg Tablet PO 1,000 mcg DAILY CLARITA Administration Fenofibrate 54 mg 09/04/20 09:00 09/05/20 08:59 Fenofibrate 54 Mg Tablet PO 54 mg DAILY CLARITA Administration Hydroxyzine HCl 75 mg 08/29/20 21:00 09/04/20 20:06 Hydroxyzine Hcl 25 Mg Tablet PO 75 mg BEDTIME CLARITA Administration Hydroxyzine HCl 25 mg 08/31/20 19:00 09/04/20 23:07 Hydroxyzine Hcl 25 Mg Tablet PO 25 mg BEDTIME PRN Administration Anxiety Lorazepam 0.5 mg 08/31/20 19:32 09/04/20 20:06 Lorazepam 0.5 Mg Tablet PO 0.5 mg Q3H PRN Administration Anxiety Magnesium Hydroxide 30 ml 08/31/20 19:00 Milk Of Magnesia 30 Ml Oral.Susp PO DAILY PRN Constipation Metoprolol Succinate 25 mg 08/30/20 09:00 09/05/20 08:59 Metoprolol Succinate Er 25 Mg Tab.Er.24h PO 25 mg DAILY CLARITA Administration Protocol Multivitamins/Minerals 1 tab 09/02/20 09:00 09/05/20 08:59 Multivitamin With Minerals Tablet PO 1 tab DAILY CLARITA Administration Nicotine 14 mg 08/31/20 19:00 Nicotine 14 Mg Patch.Td24 TRANSDERMA DAILY PRN Nicotine Cravings Nicotine Polacrilex 2 mg 08/31/20 19:00 Nicotine Polacrilex 2 Mg Gum BUCCAL Q2H PRN Nicotine Cravings Omeprazole 20 mg 08/30/20 09:00 09/05/20 08:59 Omeprazole 20 Mg Capsule.Dr PO 20 mg DAILY CLARITA Administration Prazosin HCl 2 mg 09/04/20 21:00 09/04/20 20:05 Prazosin Hcl 1 Mg Capsule PO 2 mg BEDTIME CLARITA Administration Protocol Sertraline HCl 100 mg 09/04/20 09:00 09/05/20 08:59 Sertraline Hcl 100 Mg Tablet PO 100 mg DAILY CLARITA Administration Topiramate 25 mg 09/01/20 20:00 09/05/20 08:59 Topiramate 25 Mg Tablet PO 25 mg DAILY CLARITA Administration Trazodone HCl 50 mg 08/31/20 19:00 Trazodone Hcl 50 Mg Tablet PO BEDTIME PRN Insomnia Allergies Allergies Allergy/AdvReac Type Severity Reaction Status Date / Time Penicillins [PENICILLINS] Allergy Unknown UNKNOWN Verified 08/29/20 05:15 Assessment & Plan Assessment & Plan (1) Severe recurrent major depression: Status: Acute Code(s): F33.2 - Major depressive disorder, recurrent severe without psychotic features (2) Schizophrenia, acute: Status: Acute Code(s): F23 - Brief psychotic disorder Assessment and Plan: -Continue Abilify, Sertraline -continue Prazosin to 2 mg HS to manage sx of nightmares Greater than 50% of the session was spent on counseling and/or coordination of care Patient educated on: medication risk/benefits Informed Consent: further education needed Reason for contiued inpatient stay Substantial Risk for: harm to others, inability to function and rapid decompensation
[2020-09-05] MEDS: LORazepam 0.5 MG TABLET PO (13:45)
[2020-09-05 18:00] VITALS: BP 105/56; PULSE 68; TEMP 36.3
[2020-09-05 20:07] VITALS: BP 119/75; PULSE 68
[2020-09-05] MEDS: Prazosin HCL 1 MG CAPSULE 2 MG PO (20:07)
[2020-09-05] MEDS: ARIPiprazole 10 MG TABLET PO (20:08)
[2020-09-05] MEDS: hydrOXYzine HCL 25 MG TABLET 75 MG PO (20:08)
[2020-09-05] MEDS: traZODone HCL 50 MG TABLET PO (20:10)
[2020-09-06] MEDS: traZODone HCL 50 MG TABLET PO ×2 (03:27→20:38)
[2020-09-06] MEDS: hydrOXYzine HCL 25 MG TABLET PO (03:27)
[2020-09-06 06:00] VITALS: BP 114/69; PULSE 64; RESP 18; TEMP 36.5; O2SAT 98
[2020-09-06] MEDS: Omeprazole 20 MG CAPSULE.DR PO (08:24)
[2020-09-06] MEDS: Fenofibrate 54 MG TABLET PO (08:24)
[2020-09-06] MEDS: Cyanocobalamin (Vitamin B-12) 1,000 MCG TABLET 1000 MCG PO (08:25)
[2020-09-06] MEDS: Topiramate 25 MG TABLET PO (08:25)
[2020-09-06] MEDS: Sertraline HCL 100 MG TABLET PO (08:25)
[2020-09-06 08:26] VITALS: BP 114/69; PULSE 64
[2020-09-06] MEDS: Metoprolol Succinate ER 25 MG TAB.ER.24H PO (08:26)
[2020-09-06] MEDS: LORazepam 1 MG TABLET PO ×2 (11:49→18:31)
--- NOTE | 2020-09-06 13:07 | P.CONIM_ITS ---
History of Present Illness Data of Consult Service Date: 09/06/20 Requesting physician: Lupe Dodson Primary Care Provider: [facility] HPI Reason for consult: EYE IRRITATION 40 year old man with history of tachycardia and depression admitted to for behavioral health. He had complaints of eye redness, irritation and drainage. He denied fever, chills, cough, headache, visual changes or ear pain. He denies trauma or exposure to anyone with eye infection. Review of Systems Review of Systems: Denies any recent fever chills or decrease in appetite ENT See HPI respiratory denies any shortness of breath coverage production cardiovascular no chest pain gastrointestinal denies nausea or vomiting musculoskeletal denies any joint pain or swelling neuropsych denies any weakness or seizures all other systems reviewed are negative Neurologic: Reports behavioral changes Psychiatric: Psychiatric: Reports behavioral changes [facility] Medical History (Updated 09/06/20 @ 13:14 by Radha Bal NP) Arthritis GERD (gastroesophageal reflux disease) Hepatitis C Severe recurrent major depression Tachycardia Social History Household Members: Family Housing: House Do you presently have visiting nurse or other home services: No Alcohol intake: current Alcohol intake frequency: 0-2 drinks per day Smoking Status: Current every day smoker Tobacco Type: Cigarette Smoked in Last 30 Days: Yes Patient Interested in Nicotine Replacement: No Patient Given Instructions on How to Stop Smoking: No Second Hand Smoke Exposure: No Use of substances other than those prescribed or required for medical reasons: Yes Substance Use Type: Crack/Cocaine and Sedatives Last Used Substance: Just Prior to Admission Currently Displaying Signs/Symptoms of Drug Intoxication Withdrawal: No Any prior treatment program specific to substance use: Yes Have you been hit, kicked, punched, or otherwise hurt by someone within the past year? If so, by whom?: No Do you feel safe in your current relationship?: No Is there a partner from a previous relationship who is making you feel unsafe now?: No Are you made to feel afraid or neglected: No Spiritual Healthcare Practices: none identified Hinduism Healthcare Practices: none identified Cultural Healthcare Practices: none identified Advance Directives: No Advance Directives Information Provided: No Advance Directives on File: No Do you have thoughts of harming others: None Do you have a plan to hurt others: No Plan Recently lost weight without trying: Unsure service: No Sexual orientation: Straight/Heterosexual Meds Allergies Allergy/AdvReac Type Severity Reaction Status Date / Time Penicillins [PENICILLINS] Allergy Unknown UNKNOWN Verified 08/29/20 05:15 Home Medications Medication Instructions Recorded Confirmed Type Atarax 75 mg PO BEDTIME 08/29/20 08/29/20 History clonidine HCl 0.1 mg PO BID 08/29/20 08/29/20 History cyanocobalamin (vitamin B-12) 1,000 mcg PO DAILY 08/29/20 08/29/20 History [Vitamin B-12] lorazepam [Ativan] 1 mg PO Q3-4H PRN 08/29/20 08/29/20 History metoprolol succinate 25 mg PO DAILY 08/29/20 08/29/20 History omeprazole 20 mg PO DAILY 08/29/20 08/29/20 History Physical Exam Vital Signs and Narrative: Vital Signs: Last Vital Signs Temp 97.7 F 09/06/20 06:00 Pulse 64 09/06/20 08:26 Resp 18 09/06/20 06:00 BP 114/69 09/06/20 08:26 Pulse Ox 98 09/06/20 06:00 Body Mass Index 28.6 Appearing in no acute distress head is normocephalic atraumatic eyes injection bilaterally with some thin discharge. mouth throat mucous membranes are intact and moist neck is supple no lymphadenopathy, no JVD noted lung sounds are clear to auscultation heart regular rate rhythm, clear S1, S2 positive bowel sounds, abdomen is soft, nontender neuro patient is alert x3, no focal deficits Results Labs CBC and Chem 7: 08/29/20 05:44 08/29/20 05:44 Assessment and Plan (1) Conjunctivitis: Status: Acute 40 year old man with conjunctivitis. Differential diagnosis include bacterial vs allergic vs chemical conjunctivitis. No viral prodrome noted. Due to irritation, redness and drainage will treat with topical antibiotic. Acute conjuntivitis. Treat with Erythromycin ointment 1 cm BID. warm compress for comfort. Tachycardia. Continue BB Depression. Management as per psychiatric team Discussed with Dr. Ritchie. Full code.
[2020-09-06] MEDS: Erythromycin Base 0.5% Oph Oin 1 GM TUBE 1 CM EYE-BOTH ×2 (15:00→20:37)
--- NOTE | 2020-09-06 16:55 | HO.PSYCHPN ---
Subjective Subjective Date of Service: 09/06/20 Reason For Visit: Schizophrenia, SI, Alcohol,Cocaine Abuse Interim History: Toni sleeping better at night and out of bed more today; Eyes red and with discomfort; had hospital consult today dx with conjunctivitis- started on antibiotic ointment. Review of Systems Review of Systems Denies any recent fever chills or decrease in appetite ENT See HPI respiratory denies any shortness of breath coverage production cardiovascular no chest pain gastrointestinal denies nausea or vomiting musculoskeletal denies any joint pain or swelling neuropsych denies any weakness or seizures all other systems reviewed are negative Comments: conjunctivitis Reports behavioral changes Psychiatric: Reports behavioral changes Mental Status Exam Mental Status Exam Patient Appearance: Well Grooomed and Appropriate Patient Orientation: Person, Place, Time and Situation Level of Consciousness: Awake, Appropriate and Alert Patient Behavior: Appropriate Mood Description: Calm and Anxious Affect Description: Withdrawn and Flat Patient Cognition Impaired: No Ability to Follow Directions: Good Speech Pattern: Clear Memory Description: Intact Depressive Symptoms: Increased Anxiety, Insomnia, Difficulty Sleeping and Loss of Int. in Activity Judgement: Fair Diagnostics Vital Signs (24Hr): Vital Signs - 24 hr 09/05/20 18:00 09/05/20 20:07 09/06/20 06:00 Temperature 97.4 F 97.7 F Pulse Rate 68 68 64 Respiratory Rate 18 Blood Pressure 105/56 L 119/75 114/69 Pulse Oximetry 98 09/06/20 08:26 Temperature Pulse Rate 64 Respiratory Rate Blood Pressure 114/69 Pulse Oximetry Body Mass Index 28.6 Labs Results: 08/29/20 05:44 08/29/20 05:44 Medications Medications Current Medications Generic Name Dose Route Start Last Admin Trade Name Freq PRN Reason Stop Dose Admin Acetaminophen 325 mg 08/31/20 19:00 09/04/20 01:32 Acetaminophen 325 Mg Tablet PO 325 mg Q6H PRN Administration Headache/Pain Mild Scale (1-3) Al Hydroxide/Mg Hydroxide 30 ml 08/31/20 19:00 Magnesium Hydrox/Alum Hydrox 30 Ml Oral.Susp PO Q6H PRN Heartburn/Nausea Aripiprazole 10 mg 09/03/20 21:00 09/05/20 20:08 Aripiprazole 10 Mg Tablet PO 10 mg BEDTIME CLARITA Administration Cyanocobalamin 1,000 mcg 08/30/20 09:00 09/06/20 08:25 Cyanocobalamin (Vitamin B-12) 1,000 Mcg Tablet PO 1,000 mcg DAILY CLARITA Administration Erythromycin 1 cm 09/06/20 13:30 09/06/20 15:00 Erythromycin Base 0.5% Oph Oin 1 Gm Tube EYE-BOTH 1 cm BID CLARITA Administration Fenofibrate 54 mg 09/04/20 09:00 09/06/20 08:24 Fenofibrate 54 Mg Tablet PO 54 mg DAILY CLARITA Administration Hydroxyzine HCl 75 mg 08/29/20 21:00 09/05/20 20:08 Hydroxyzine Hcl 25 Mg Tablet PO 75 mg BEDTIME CLARITA Administration Hydroxyzine HCl 25 mg 08/31/20 19:00 09/06/20 03:27 Hydroxyzine Hcl 25 Mg Tablet PO 25 mg BEDTIME PRN Administration Anxiety Lorazepam 1 mg 09/06/20 11:40 09/06/20 11:49 Lorazepam 1 Mg Tablet PO 1 mg Q6H PRN Administration anxiety/restlessness Magnesium Hydroxide 30 ml 08/31/20 19:00 Milk Of Magnesia 30 Ml Oral.Susp PO DAILY PRN Constipation Metoprolol Succinate 25 mg 08/30/20 09:00 09/06/20 08:26 Metoprolol Succinate Er 25 Mg Tab.Er.24h PO 25 mg DAILY CLARITA Administration Protocol Multivitamins/Minerals 1 tab 09/02/20 09:00 09/06/20 08:25 Multivitamin With Minerals Tablet PO 1 tab DAILY CLARITA Administration Nicotine 14 mg 08/31/20 19:00 Nicotine 14 Mg Patch.Td24 TRANSDERMA DAILY PRN Nicotine Cravings Nicotine Polacrilex 2 mg 08/31/20 19:00 Nicotine Polacrilex 2 Mg Gum BUCCAL Q2H PRN Nicotine Cravings Omeprazole 20 mg 08/30/20 09:00 09/06/20 08:24 Omeprazole 20 Mg Capsule.Dr PO 20 mg DAILY CLARITA Administration Prazosin HCl 2 mg 09/04/20 21:00 09/05/20 20:07 Prazosin Hcl 1 Mg Capsule PO 2 mg BEDTIME CLARITA Administration Protocol Sertraline HCl 100 mg 09/04/20 09:00 09/06/20 08:25 Sertraline Hcl 100 Mg Tablet PO 100 mg DAILY CLARITA Administration Topiramate 25 mg 09/01/20 20:00 09/06/20 08:25 Topiramate 25 Mg Tablet PO 25 mg DAILY CLARITA Administration Trazodone HCl 50 mg 08/31/20 19:00 09/06/20 03:27 Trazodone Hcl 50 Mg Tablet PO 50 mg BEDTIME PRN Administration Insomnia Allergies Allergies Allergy/AdvReac Type Severity Reaction Status Date / Time Penicillins [PENICILLINS] Allergy Unknown UNKNOWN Verified 08/29/20 05:15 Assessment & Plan Assessment & Plan (1) Conjunctivitis: Status: Acute Code(s): H10.9 - Unspecified conjunctivitis (2) Severe recurrent major depression: Status: Acute Code(s): F33.2 - Major depressive disorder, recurrent severe without psychotic features (3) Schizophrenia, acute: Status: Acute Code(s): F23 - Brief psychotic disorder (4) Cocaine abuse: Status: Acute Code(s): F14.10 - Cocaine abuse, uncomplicated (5) Alcohol abuse: Status: Acute Code(s): F10.10 - Alcohol abuse, uncomplicated (6) Hypertriglyceridemia: Status: Acute Code(s): E78.1 - Pure hyperglyceridemia (7) Hypotension: Status: Acute Code(s): I95.9 - Hypotension, unspecified (8) Arthritis: Status: Acute Code(s): M19.90 - Unspecified osteoarthritis, unspecified site Assessment and Plan: Continue current treatment plan Encourage pt to wash hands frequently - remind Pt of contagious condition/conjuctivitis collateral contact and d/c planning Greater than 50% of the session was spent on counseling and/or coordination of care Patient educated on: diagnosis, medication risk/benefits and medical condition Informed Consent: understands Reason for contiued inpatient stay Substantial Risk for: harm to self, inability to function and rapid decompensation
[2020-09-06 20:35] VITALS: BP 120/80; PULSE 80
[2020-09-06] MEDS: Prazosin HCL 1 MG CAPSULE 2 MG PO (20:35)
[2020-09-06] MEDS: ARIPiprazole 10 MG TABLET PO (20:36)
[2020-09-06] MEDS: hydrOXYzine HCL 25 MG TABLET 75 MG PO (20:36)
[2020-09-07] MEDS: LORazepam 1 MG TABLET PO ×3 (02:35→17:22)
[2020-09-07] MEDS: hydrOXYzine HCL 25 MG TABLET PO (02:35)
[2020-09-07 06:10] VITALS: BP 118/73; PULSE 90; RESP 16; TEMP 36.6; O2SAT 97
[2020-09-07] MEDS: Sertraline HCL 100 MG TABLET PO (08:37)
[2020-09-07] MEDS: Omeprazole 20 MG CAPSULE.DR PO (08:37)
[2020-09-07] MEDS: Topiramate 25 MG TABLET PO (08:37)
[2020-09-07 08:38] VITALS: BP 118/73; PULSE 90
[2020-09-07] MEDS: Fenofibrate 54 MG TABLET PO (08:38)
[2020-09-07] MEDS: Metoprolol Succinate ER 25 MG TAB.ER.24H PO (08:38)
[2020-09-07] MEDS: Erythromycin Base 0.5% Oph Oin 1 GM TUBE 1 CM EYE-BOTH ×2 (08:39→16:01)
[2020-09-07] MEDS: Cyanocobalamin (Vitamin B-12) 1,000 MCG TABLET 1000 MCG PO (09:24)
[2020-09-07 18:00] VITALS: BP 109/76; PULSE 78; TEMP 36.3
--- NOTE | 2020-09-07 18:32 | HO.PSYCHPN ---
Subjective Subjective Date of Service: 09/07/20 Reason For Visit: Schizophrenia, SI, Alcohol,Cocaine Abuse Interim History: Pt reports medications are effective. Very worried about not being able to find a placement and relapse. Diagnosed with conjunctivitis over the weekend which he reports is uncomfortable. Medication Compliance: Yes Side effects from medications: No Attending Groups: No Review of Systems Eyes: Reports blurry vision, Reports change in vision, Reports eye discharge, Reports dry eyes, Reports irritation, Reports itchy eyes and Reports other (conjunctivitis) Reports behavioral changes Psychiatric: Reports behavioral changes Allergic/Immunologic: Reports itchy eyes Mental Status Exam Mental Status Exam Patient Appearance: Fatigued Patient Orientation: Person, Place, Time and Situation Level of Consciousness: Awake and Alert Patient Behavior: Appropriate and Cooperative Mood Description: Anxious Affect Description: Anxious Patient Cognition Impaired: No Speech Pattern: Clear Memory Description: Intact Hallucinations: None Delusions: Not Present Thought Process: Intact Thought Content: positive for Intact Depressive Symptoms: Difficulty Sleeping (pt sleeping during the day time, reversing his sleep cycle.) Judgement: Fair Diagnostics Vital Signs (24Hr): Vital Signs - 24 hr 09/06/20 20:35 09/07/20 06:10 09/07/20 08:38 Temperature 98 F Pulse Rate 80 90 90 Respiratory Rate 16 Blood Pressure 120/80 118/73 118/73 Pulse Oximetry 97 Body Mass Index 28.6 Labs Results: 08/29/20 05:44 08/29/20 05:44 Medications Medications Current Medications Generic Name Dose Route Start Last Admin Trade Name Freq PRN Reason Stop Dose Admin Acetaminophen 325 mg 08/31/20 19:00 09/04/20 01:32 Acetaminophen 325 Mg Tablet PO 325 mg Q6H PRN Administration Headache/Pain Mild Scale (1-3) Al Hydroxide/Mg Hydroxide 30 ml 08/31/20 19:00 Magnesium Hydrox/Alum Hydrox 30 Ml Oral.Susp PO Q6H PRN Heartburn/Nausea Aripiprazole 10 mg 09/03/20 21:00 09/06/20 20:36 Aripiprazole 10 Mg Tablet PO 10 mg BEDTIME CLARITA Administration Cyanocobalamin 1,000 mcg 08/30/20 09:00 09/07/20 09:24 Cyanocobalamin (Vitamin B-12) 1,000 Mcg Tablet PO 1,000 mcg DAILY CLARITA Administration Erythromycin 1 cm 09/06/20 13:30 09/07/20 16:01 Erythromycin Base 0.5% Oph Oin 1 Gm Tube EYE-BOTH 1 cm BID CLARITA Administration Fenofibrate 54 mg 09/04/20 09:00 09/07/20 08:38 Fenofibrate 54 Mg Tablet PO 54 mg DAILY CLARITA Administration Hydroxyzine HCl 75 mg 08/29/20 21:00 09/06/20 20:36 Hydroxyzine Hcl 25 Mg Tablet PO 75 mg BEDTIME CLARITA Administration Hydroxyzine HCl 25 mg 08/31/20 19:00 09/07/20 02:35 Hydroxyzine Hcl 25 Mg Tablet PO 25 mg BEDTIME PRN Administration Anxiety Lorazepam 1 mg 09/06/20 11:40 09/07/20 17:22 Lorazepam 1 Mg Tablet PO 1 mg Q6H PRN Administration anxiety/restlessness Magnesium Hydroxide 30 ml 08/31/20 19:00 Milk Of Magnesia 30 Ml Oral.Susp PO DAILY PRN Constipation Metoprolol Succinate 25 mg 08/30/20 09:00 09/07/20 08:38 Metoprolol Succinate Er 25 Mg Tab.Er.24h PO 25 mg DAILY CLARITA Administration Protocol Multivitamins/Minerals 1 tab 09/02/20 09:00 09/07/20 08:38 Multivitamin With Minerals Tablet PO 1 tab DAILY CLARITA Administration Nicotine 14 mg 08/31/20 19:00 Nicotine 14 Mg Patch.Td24 TRANSDERMA DAILY PRN Nicotine Cravings Nicotine Polacrilex 2 mg 08/31/20 19:00 Nicotine Polacrilex 2 Mg Gum BUCCAL Q2H PRN Nicotine Cravings Omeprazole 20 mg 08/30/20 09:00 09/07/20 08:37 Omeprazole 20 Mg Capsule.Dr PO 20 mg DAILY CLARITA Administration Prazosin HCl 2 mg 09/04/20 21:00 09/06/20 20:35 Prazosin Hcl 1 Mg Capsule PO 2 mg BEDTIME CLARITA Administration Protocol Sertraline HCl 100 mg 09/04/20 09:00 09/07/20 08:37 Sertraline Hcl 100 Mg Tablet PO 100 mg DAILY CLARITA Administration Topiramate 25 mg 09/01/20 20:00 09/07/20 08:37 Topiramate 25 Mg Tablet PO 25 mg DAILY CLARITA Administration Trazodone HCl 50 mg 08/31/20 19:00 09/06/20 20:38 Trazodone Hcl 50 Mg Tablet PO 50 mg BEDTIME PRN Administration Insomnia Allergies Allergies Allergy/AdvReac Type Severity Reaction Status Date / Time Penicillins [PENICILLINS] Allergy Unknown UNKNOWN Verified 08/29/20 05:15 Assessment & Plan Assessment & Plan (1) Severe recurrent major depression: Status: Acute Code(s): F33.2 - Major depressive disorder, recurrent severe without psychotic features Assessment and Plan: -Continue current regime. (2) Alcohol abuse: Status: Acute Code(s): F10.10 - Alcohol abuse, uncomplicated (3) Cocaine abuse: Status: Acute Code(s): F14.10 - Cocaine abuse, uncomplicated (4) Schizophrenia, acute: Status: Acute Code(s): F23 - Brief psychotic disorder Greater than 50% of the session was spent on counseling and/or coordination of care Patient educated on: medication risk/benefits and therapeutic strategies Informed Consent: understands and further education needed Reason for contiued inpatient stay Substantial Risk for: harm to self, harm to others, inability to function and rapid decompensation
[2020-09-07 20:31] VITALS: BP 109/76; PULSE 78
[2020-09-07] MEDS: Prazosin HCL 1 MG CAPSULE 2 MG PO (20:31)
[2020-09-07] MEDS: ARIPiprazole 10 MG TABLET PO (20:31)
[2020-09-07] MEDS: hydrOXYzine HCL 25 MG TABLET 75 MG PO (20:31)
[2020-09-07] MEDS: traZODone HCL 50 MG TABLET PO (20:34)
[2020-09-08] MEDS: traZODone HCL 50 MG TABLET PO ×2 (03:01→21:40)
[2020-09-08 06:40] VITALS: BP 115/66; PULSE 72; TEMP 36.5
[2020-09-08] MEDS: Acetaminophen 325 MG TABLET PO (07:13)
[2020-09-08 07:58] VITALS: BP 115/66; PULSE 72
[2020-09-08] MEDS: Fenofibrate 54 MG TABLET PO (07:58)
[2020-09-08] MEDS: Metoprolol Succinate ER 25 MG TAB.ER.24H PO (07:58)
[2020-09-08] MEDS: Cyanocobalamin (Vitamin B-12) 1,000 MCG TABLET 1000 MCG PO (07:58)
[2020-09-08] MEDS: Topiramate 25 MG TABLET PO (07:58)
[2020-09-08] MEDS: Sertraline HCL 100 MG TABLET PO (07:58)
[2020-09-08] MEDS: Erythromycin Base 0.5% Oph Oin 1 GM TUBE 1 CM EYE-BOTH (07:59)
[2020-09-08] MEDS: Omeprazole 20 MG CAPSULE.DR PO (08:32)
[2020-09-08] MEDS: LORazepam 1 MG TABLET PO ×2 (11:30→18:03)
[2020-09-08] MEDS: hydrOXYzine HCL 25 MG TABLET PO ×2 (16:47→21:41)
--- NOTE | 2020-09-08 16:51 | HO.PSYCHPN ---
Subjective Subjective Date of Service: 09/08/20 Reason For Visit: Schizophrenia, SI, Alcohol,Cocaine Abuse Interim History: Anxious about CSS placement. Concerned if he were to return to family home he would be at high risk for relapse. AH reported by pt to team. Reports also to team conjunctivitis discomfort-burning, itching, pain. Discussed with hospitalist Radha Bal who suggested pt be seen by Dr. Arroyo. Request made. Review of Systems Eyes: Reports blurry vision, Reports change in vision, Reports eye discharge, Reports irritation, Reports itchy eyes and Reports photophobia Reports behavioral changes Psychiatric: Reports abnormal sleep pattern (pt has a reversal of his sleep cycle.), Reports anxiety, Reports behavioral changes and Reports auditory hallucinations Allergic/Immunologic: Reports itchy eyes Mental Status Exam Mental Status Exam Patient Appearance: Fatigued Patient Orientation: Person, Place, Time and Situation Level of Consciousness: Awake, Appropriate and Alert Patient Behavior: Appropriate, Cooperative and Anxious Mood Description: Anxious Affect Description: Flat Patient Cognition Impaired: No Ability to Follow Directions: Good Speech Pattern: Clear Memory Description: Intact Hallucinations: Auditory (reported to team) Delusions: Not Present Thought Process: Intact Thought Content: positive for Intact Depressive Symptoms: Increased Anxiety and Difficulty Sleeping Judgement: Good Diagnostics Vital Signs (24Hr): Vital Signs - 24 hr 09/07/20 18:00 09/07/20 20:31 09/08/20 06:40 Temperature 97.4 F 97.7 F Pulse Rate 78 78 72 Blood Pressure 109/76 109/76 115/66 09/08/20 07:58 Temperature Pulse Rate 72 Blood Pressure 115/66 Body Mass Index 28.6 Labs Results: 08/29/20 05:44 08/29/20 05:44 Medications Medications Current Medications Generic Name Dose Route Start Last Admin Trade Name Freq PRN Reason Stop Dose Admin Acetaminophen 325 mg 08/31/20 19:00 09/08/20 07:13 Acetaminophen 325 Mg Tablet PO 325 mg Q6H PRN Administration Headache/Pain Mild Scale (1-3) Al Hydroxide/Mg Hydroxide 30 ml 08/31/20 19:00 Magnesium Hydrox/Alum Hydrox 30 Ml Oral.Susp PO Q6H PRN Heartburn/Nausea Aripiprazole 10 mg 09/03/20 21:00 09/07/20 20:31 Aripiprazole 10 Mg Tablet PO 10 mg BEDTIME CLARITA Administration Cyanocobalamin 1,000 mcg 08/30/20 09:00 09/08/20 07:58 Cyanocobalamin (Vitamin B-12) 1,000 Mcg Tablet PO 1,000 mcg DAILY CLARITA Administration Erythromycin 1 cm 09/06/20 13:30 09/08/20 07:59 Erythromycin Base 0.5% Oph Oin 1 Gm Tube EYE-BOTH 1 cm BID CLARITA Administration Fenofibrate 54 mg 09/04/20 09:00 09/08/20 07:58 Fenofibrate 54 Mg Tablet PO 54 mg DAILY CLARITA Administration Hydroxyzine HCl 75 mg 08/29/20 21:00 09/07/20 20:31 Hydroxyzine Hcl 25 Mg Tablet PO 75 mg BEDTIME CLARITA Administration Hydroxyzine HCl 25 mg 08/31/20 19:00 09/07/20 02:35 Hydroxyzine Hcl 25 Mg Tablet PO 25 mg BEDTIME PRN Administration Anxiety Hydroxyzine HCl 25 mg 09/08/20 16:38 09/08/20 16:47 Hydroxyzine Hcl 25 Mg Tablet PO 25 mg Q4H PRN Administration Anxiety Lorazepam 1 mg 09/06/20 11:40 09/08/20 11:30 Lorazepam 1 Mg Tablet PO 1 mg Q6H PRN Administration anxiety/restlessness Magnesium Hydroxide 30 ml 08/31/20 19:00 Milk Of Magnesia 30 Ml Oral.Susp PO DAILY PRN Constipation Metoprolol Succinate 25 mg 08/30/20 09:00 09/08/20 07:58 Metoprolol Succinate Er 25 Mg Tab.Er.24h PO 25 mg DAILY CLARITA Administration Protocol Multivitamins/Minerals 1 tab 09/02/20 09:00 09/08/20 07:58 Multivitamin With Minerals Tablet PO 1 tab DAILY CLARITA Administration Nicotine 14 mg 08/31/20 19:00 Nicotine 14 Mg Patch.Td24 TRANSDERMA DAILY PRN Nicotine Cravings Nicotine Polacrilex 2 mg 08/31/20 19:00 Nicotine Polacrilex 2 Mg Gum BUCCAL Q2H PRN Nicotine Cravings Omeprazole 20 mg 09/08/20 09:00 09/08/20 08:32 Omeprazole 20 Mg Capsule.Dr PO 20 mg DAILY CLARITA Administration Prazosin HCl 2 mg 09/04/20 21:00 09/07/20 20:31 Prazosin Hcl 1 Mg Capsule PO 2 mg BEDTIME CLARITA Administration Protocol Sertraline HCl 100 mg 09/04/20 09:00 09/08/20 07:58 Sertraline Hcl 100 Mg Tablet PO 100 mg DAILY CLARITA Administration Topiramate 25 mg 09/01/20 20:00 09/08/20 07:58 Topiramate 25 Mg Tablet PO 25 mg DAILY CLARITA Administration Trazodone HCl 50 mg 08/31/20 19:00 09/08/20 03:01 Trazodone Hcl 50 Mg Tablet PO 50 mg BEDTIME PRN Administration Insomnia Allergies Allergies Allergy/AdvReac Type Severity Reaction Status Date / Time Penicillins [PENICILLINS] Allergy Unknown UNKNOWN Verified 08/29/20 05:15 Assessment & Plan Assessment & Plan (1) Severe recurrent major depression: Qualifiers: Psychotic features: with psychotic features Qualified Code(s): F33.3 - Major depressive disorder, recurrent, severe with psychotic symptoms Status: Acute Code(s): F33.2 - Major depressive disorder, recurrent severe without psychotic features Assessment and Plan: -Increase Abilify to 15 mg HS -Atarax 25 mg q 4 hours prn anxiety/agitation (2) Conjunctivitis: Qualifiers: Conjunctivitis type: unspecified Laterality: bilateral Qualified Code(s): H10.9 - Unspecified conjunctivitis Status: Acute Code(s): H10.9 - Unspecified conjunctivitis Assessment and Plan: Consult with Dr. Arroyo (3) Schizophrenia, acute: Status: Acute Code(s): F23 - Brief psychotic disorder (4) Cocaine abuse: Status: Acute Code(s): F14.10 - Cocaine abuse, uncomplicated (5) Alcohol abuse: Status: Acute Code(s): F10.10 - Alcohol abuse, uncomplicated Greater than 50% of the session was spent on counseling and/or coordination of care Patient educated on: medication risk/benefits Informed Consent: understands and further education needed Reason for contiued inpatient stay Substantial Risk for: inability to function and rapid decompensation
[2020-09-08 18:00] VITALS: BP 130/65; PULSE 86; TEMP 36.6
[2020-09-08 20:31] VITALS: BP 130/65; PULSE 86
[2020-09-08] MEDS: hydrOXYzine HCL 25 MG TABLET 75 MG PO (20:31)
[2020-09-08] MEDS: ARIPiprazole 10 MG TABLET PO (20:31)
[2020-09-08] MEDS: Prazosin HCL 1 MG CAPSULE 2 MG PO (20:31)
[2020-09-08] MEDS: Artificial Tears 15 ML DROPS 2 DROP EYE-BOTH (21:41)
[2020-09-09 06:35] VITALS: BP 118/62; PULSE 72; RESP 16; TEMP 36.6; O2SAT 96
[2020-09-09 08:17] VITALS: BP 118/62; PULSE 72
[2020-09-09] MEDS: Metoprolol Succinate ER 25 MG TAB.ER.24H PO (08:17)
[2020-09-09] MEDS: Fenofibrate 54 MG TABLET PO (08:19)
[2020-09-09] MEDS: Cyanocobalamin (Vitamin B-12) 1,000 MCG TABLET 1000 MCG PO (08:19)
[2020-09-09] MEDS: Sertraline HCL 100 MG TABLET PO (08:19)
[2020-09-09] MEDS: Topiramate 25 MG TABLET PO (08:19)
[2020-09-09] MEDS: Omeprazole 20 MG CAPSULE.DR PO (08:20)
[2020-09-09] MEDS: Acetaminophen 325 MG TABLET PO (08:30)
[2020-09-09] MEDS: LORazepam 1 MG TABLET PO (09:54)
[2020-09-09] MEDS: Artificial Tears 15 ML DROPS 2 DROP EYE-BOTH ×2 (09:55→13:20)
[2020-09-09] MEDS: hydrOXYzine HCL 25 MG TABLET PO ×2 (11:52→15:52)
--- NOTE | 2020-09-09 13:00 | W.PM.IDCN ---
History of Present Illness Data of Consult Service Date: 09/09/20 Requesting physician: Bk Olson Primary Care Provider: [facility] HPI Reason for consult: eye pain and redness He has 3 days of bilateral eye redness and swelling He has been on M-5 for 8 days He has no fever or chills He has some blurry vision He has not had improvement with Erythromycin ointment or drops Review of Systems Eyes: Eyes: Reports as per HPI Neurologic: Reports behavioral changes Psychiatric: Psychiatric: Reports behavioral changes [facility] Past Medical History Medical History Arthritis GERD (gastroesophageal reflux disease) Hepatitis C Severe recurrent major depression Tachycardia Social History Social History Household Members: Family Housing: House Do you presently have visiting nurse or other home services: No Alcohol intake: current Alcohol intake frequency: 0-2 drinks per day Smoking Status: Current every day smoker Tobacco Type: Cigarette Smoked in Last 30 Days: Yes Patient Interested in Nicotine Replacement: No Patient Given Instructions on How to Stop Smoking: No Second Hand Smoke Exposure: No Use of substances other than those prescribed or required for medical reasons: Yes Substance Use Type: Crack/Cocaine and Sedatives Last Used Substance: Just Prior to Admission Currently Displaying Signs/Symptoms of Drug Intoxication Withdrawal: No Any prior treatment program specific to substance use: Yes Have you been hit, kicked, punched, or otherwise hurt by someone within the past year? If so, by whom?: No Do you feel safe in your current relationship?: No Is there a partner from a previous relationship who is making you feel unsafe now?: No Are you made to feel afraid or neglected: No Spiritual Healthcare Practices: none identified [employer] Healthcare Practices: none identified Cultural Healthcare Practices: none identified Advance Directives: No Advance Directives Information Provided: No Advance Directives on File: No Do you have thoughts of harming others: None Do you have a plan to hurt others: No Plan Recently lost weight without trying: Unsure service: No Sexual orientation: Straight/Heterosexual Meds Allergies Allergy/AdvReac Type Severity Reaction Status Date / Time Penicillins [PENICILLINS] Allergy Unknown UNKNOWN Verified 08/29/20 05:15 Home Medications Medication Instructions Recorded Confirmed Type Atarax 75 mg PO BEDTIME 08/29/20 08/29/20 History clonidine HCl 0.1 mg PO BID 08/29/20 08/29/20 History cyanocobalamin (vitamin B-12) 1,000 mcg PO DAILY 08/29/20 08/29/20 History [Vitamin B-12] lorazepam [Ativan] 1 mg PO Q3-4H PRN 08/29/20 08/29/20 History metoprolol succinate 25 mg PO DAILY 08/29/20 08/29/20 History omeprazole 20 mg PO DAILY 08/29/20 08/29/20 History Physical Exam Vital Signs: Vital Signs: Last Vital Signs Temp 97.8 F 09/09/20 06:35 Pulse 72 09/09/20 08:17 Resp 16 09/09/20 06:35 BP 118/62 09/09/20 08:17 Pulse Ox 96 09/09/20 06:35 Body Mass Index 28.6 Const: General: cooperative Eyes: Other: reddened,swollen bilateral conjunctiva Resp: Effort & Inspection: normal respiratory effort Cardio: Rate: regular rate Rhythm: regular rhythm GI: Palpation (GI): nontender Assessment and Plan (1) Conjunctivitis: Qualifiers: Conjunctivitis type: unspecified Laterality: bilateral Qualified Code(s): H10.9 - Unspecified conjunctivitis Problem details: Possible viral or allergic Not responding to usual measures including ocular antibiotics Status: Acute Would send patient to Opthalmology today Patient seen in private room with [place] Results Labs CBC & Chem 7: 08/29/20 05:44 08/29/20 05:44
[2020-09-09] MEDS: LORazepam 0.5 MG TABLET PO (14:11)
--- NOTE | 2020-09-09 14:26 | PC.NURSE ---
Pt had opthamology appt at [address] [place] [address] dr. ALONZO stated pt has bacterial conjuctivitits. Wrote a prescription for eye drops to be used QID. stated do not touch eyes with tissue after applying drops. Drops to be used at least 7-10 days, reassess at that point. To be used up to two weeks if needed. CAW notified of medication to prescribe.
--- NOTE | 2020-09-09 17:01 | P.PNPSI_ITS ---
Subjective Subjective Date of Service: 09/09/20 Reason For Visit: Schizophrenia, SI, Alcohol,Cocaine Abuse Subjective Notes: Conditional Voluntary Interim History: Reports anxiety and insomnia with early sobriety. Discussed medication changes, sleep hygiene. Pt seen in re-eval on 09/08 by hospitalist who suggested opth eval. Pt saw Dr. Love who prescribed Maxitrol drops for current conjunctivitis. Medication Compliance: Yes Side effects from medications: No Attending Groups: No (per pt report) Review of Systems Eyes: Reports blurry vision, Reports eye discharge, Reports irritation, Reports itchy eyes, Reports eye pain and Reports photophobia Reports behavioral changes Psychiatric: Reports abnormal sleep pattern, Reports anxiety and Reports behavioral changes Allergic/Immunologic: Reports itchy eyes Mental Status Exam Mental Status Exam Patient Appearance: Appropriate Patient Orientation: Person, Place, Time and Situation Level of Consciousness: Awake, Restless and Alert Patient Behavior: Appropriate, Talkative, Hyperactive (required lorazepam 0.5 mg po prn x 1), Cooperative and Anxious Mood Description: Anxious, Labile, Nervous and Apprehensive Affect Description: Labile Patient Cognition Impaired: No Ability to Follow Directions: Fair Speech Pattern: Appropriate and Spontaneous Speech Memory Description: Intact Hallucinations: None Delusions: Not Present Thought Process: Goal Oriented Thought Content: positive for [place] and positive for Circumstantial Depressive Symptoms: Increased Anxiety, Insomnia and Difficulty Sleeping Judgement: Fair Diagnostics Vital Signs (24Hr): Vital Signs - 24 hr 09/08/20 18:00 09/08/20 20:31 09/09/20 06:35 Temperature 97.8 F 97.8 F Pulse Rate 86 86 72 Respiratory Rate 16 Blood Pressure 130/65 130/65 118/62 Pulse Oximetry 96 09/09/20 08:17 Temperature Pulse Rate 72 Respiratory Rate Blood Pressure 118/62 Pulse Oximetry Body Mass Index 28.6 Labs Results: 08/29/20 05:44 08/29/20 05:44 Medications Medications Current Medications Generic Name Dose Route Start Last Admin Trade Name Freq PRN Reason Stop Dose Admin Acetaminophen 325 mg 08/31/20 19:00 09/09/20 08:30 Acetaminophen 325 Mg Tablet PO 325 mg Q6H PRN Administration Headache/Pain Mild Scale (1-3) Al Hydroxide/Mg Hydroxide 30 ml 08/31/20 19:00 Magnesium Hydrox/Alum Hydrox 30 Ml Oral.Susp PO Q6H PRN Heartburn/Nausea Artificial Tears 2 drop 09/08/20 20:00 09/09/20 13:20 Artificial Tears 15 Ml Drops EYE-BOTH 2 drop Q8H CLARITA Administration Clonazepam 0.5 mg 09/09/20 21:00 Clonazepam 0.5 Mg Tablet PO BEDTIME CLARITA Cyanocobalamin 1,000 mcg 08/30/20 09:00 09/09/20 08:19 Cyanocobalamin (Vitamin B-12) 1,000 Mcg Tablet PO 1,000 mcg DAILY CLARITA Administration Fenofibrate 54 mg 09/04/20 09:00 09/09/20 08:19 Fenofibrate 54 Mg Tablet PO 54 mg DAILY CLARITA Administration Hydroxyzine HCl 75 mg 08/29/20 21:00 09/08/20 20:31 Hydroxyzine Hcl 25 Mg Tablet PO 75 mg BEDTIME CLARITA Administration Hydroxyzine HCl 25 mg 08/31/20 19:00 09/07/20 02:35 Hydroxyzine Hcl 25 Mg Tablet PO 25 mg BEDTIME PRN Administration Anxiety Hydroxyzine HCl 25 mg 09/08/20 16:38 09/09/20 15:52 Hydroxyzine Hcl 25 Mg Tablet PO 25 mg Q4H PRN Administration Anxiety Magnesium Hydroxide 30 ml 08/31/20 19:00 Milk Of Magnesia 30 Ml Oral.Susp PO DAILY PRN Constipation Metoprolol Succinate 25 mg 08/30/20 09:00 09/09/20 08:17 Metoprolol Succinate Er 25 Mg Tab.Er.24h PO 25 mg DAILY CLARITA Administration Protocol Multivitamins/Minerals 1 tab 09/02/20 09:00 09/09/20 08:17 Multivitamin With Minerals Tablet PO 1 tab DAILY CLARITA Administration Neomycin/Polymyxin/Dexamethasone 1 drop 09/09/20 17:00 Neomy/Polymyx/Dexameth Oph Melia 5 Ml Bottle EYE-BOTH 09/24/20 00:00 QID CLARITA Nicotine 14 mg 08/31/20 19:00 Nicotine 14 Mg Patch.Td24 TRANSDERMA DAILY PRN Nicotine Cravings Nicotine Polacrilex 2 mg 08/31/20 19:00 Nicotine Polacrilex 2 Mg Gum BUCCAL Q2H PRN Nicotine Cravings Olanzapine 5 mg 09/09/20 21:00 Olanzapine 5 Mg Tablet PO BEDTIME CLARITA Omeprazole 20 mg 09/08/20 09:00 09/09/20 08:20 Omeprazole 20 Mg Capsule. PO 20 mg DAILY CLARITA Administration Sertraline HCl 100 mg 09/04/20 09:00 09/09/20 08:19 Sertraline Hcl 100 Mg Tablet PO 100 mg DAILY CLARITA Administration Trazodone HCl 50 mg 08/31/20 19:00 09/08/20 21:40 Trazodone Hcl 50 Mg Tablet PO 50 mg BEDTIME PRN Administration Insomnia Allergies Allergies Allergy/AdvReac Type Severity Reaction Status Date / Time Penicillins [PENICILLINS] Allergy Unknown UNKNOWN Verified 08/29/20 05:15 Assessment & Plan Assessment & Plan (1) Severe recurrent major depression: Qualifiers: Psychotic features: with psychotic features Qualified Code(s): F33.3 - Major depressive disorder, recurrent, severe with psychotic symptoms Status: Acute Code(s): F33.2 - Major depressive disorder, recurrent severe without psychotic features Assessment and Plan: -Discontinue Prazosin (2) Schizophrenia, acute: Status: Acute Code(s): F23 - Brief psychotic disorder Assessment and Plan: -Discontinue Abilify -Olanzapine 5 mg hs -Klonopin 0.5 mg hs (3) Conjunctivitis: Qualifiers: Conjunctivitis type: unspecified Laterality: bilateral Qualified Code(s): H10.9 - Unspecified conjunctivitis Status: Acute Code(s): H10.9 - Unspecified conjunctivitis Assessment and Plan: Pt seen by Dr. Love. Maxitrol 3.5 mg/ml 1gtt both eyes QID 7-14 days. (4) Cocaine abuse: Status: Acute Code(s): F14.10 - Cocaine abuse, uncomplicated Assessment and Plan: -Discontinue Topamax (5) Alcohol abuse: Status: Acute Code(s): F10.10 - Alcohol abuse, uncomplicated Assessment and Plan: -Early sobriety-anxiety, insomnia. Given information on sleep hygiene. Greater than 50% of the session was spent on counseling and/or coordination of care Patient educated on: medication risk/benefits Informed Consent: further education needed Reason for contiued inpatient stay Substantial Risk for: harm to self, inability to function and rapid decompensation
[2020-09-09 18:00] VITALS: BP 124/72; PULSE 84; TEMP 36.8
[2020-09-09 18:09] LABS: MANUAL DIFF FLAG NO
[2020-09-09 18:19] LABS: Basophils Percent Auto 0.5 % (0-2); Eosinophils Absolute Auto 0.1 X10*3/uL (0.0-0.4); Eosinophils Percent Auto 1.4 % (0-4); Hematocrit 45.7 % (42-52); Imm Gran Abs Auto 0.01 X10*3/uL (0.00-0.03); Imm Gran Pct Auto 0.2 % (0.0-0.4); Lymphocytes Absolute Auto 1.9 X10*3/uL (1.2-4.9); Mean Corpuscular Hemoglobin 32.7 pg (27.0-33.0); Mean Corpuscular Volume 93.5 fL (80-98); Mean Platelet Volume 9.8 fL (9.4-12.4); Monocytes Absolute Auto 1.1 X10*3/uL (0.1-1.2); Monocytes Percent Auto 18.9 % (2-11); Neutrophils Absolute Auto 2.6 X10*3/uL (2.0-8.3); Platelet Count 218 X10*3/uL (160-400); Red Blood Count 4.89 X10*6/uL (4.60-5.80); Red Cell Distribution Width 12.4 % (11.0-16.0); White Blood Count 5.7 X10*3/uL (4.8-10.8)
[2020-09-09 18:32] LABS: Alanine Aminotransferase 73 U/L (0-40); Albumin Level 4.6 g/dL (3.5-5.0); Alkaline Phosphatase 59 U/L (39-117); Anion Gap 12 (12-20); Aspartate Amino Transferase 36 U/L (5-37); Bilirubin Total 0.4 mg/dL (0.0-1.0); Blood Urea Nitrogen 12 mg/dL (9-16); Calcium 9.1 mg/dL (8.4-10.2); Carbon Dioxide 26 mmol/L (22-29); Chloride 106 mmol/L (96-108); Cholesterol 220 mg/dL; Creatinine Clr Calc Pharmacy 90.2; Estimated Glomerular Filt Rate > 60; Glucose Random 116 mg/dL (60-115); HDL Cholesterol 31 mg/dL; LDL Cholesterol Calculated 133 mg/dl; Potassium 4.1 mmol/l (3.3-5.1); Sodium 140 mmol/L (135-145); Total Protein 8.2 g/dL (6.5-8.0); Triglycerides 284 mg/dL
[2020-09-09 18:35] LABS: Estimated Average Glucose 103 mg/dL; Hemoglobin A1c % 5.2 %
[2020-09-09 18:52] LABS: Thyroid Stimulating Hormone 3.11 uIU/mL (0.32-4.0)
[2020-09-09] MEDS: NeoMY/Polymyx/Dexameth Oph Sus 5 ML BOTTLE 1 DROP EYE-BOTH ×2 (18:53→22:19)
[2020-09-09 19:06] LABS: Vitamin B12 742 pg/mL (200-900)
[2020-09-09] MEDS: clonazePAM 0.5 MG TABLET PO (20:36)
[2020-09-09] MEDS: hydrOXYzine HCL 25 MG TABLET 75 MG PO (22:18)
[2020-09-09] MEDS: OLANZapine 5 MG TABLET PO (22:18)
[2020-09-09] MEDS: traZODone HCL 50 MG TABLET PO (22:21)
[2020-09-10] MEDS: traZODone HCL 50 MG TABLET PO ×2 (03:04→20:15)
[2020-09-10] MEDS: hydrOXYzine HCL 25 MG TABLET PO ×2 (03:04→12:30)
[2020-09-10 06:25] VITALS: BP 119/61; PULSE 70; RESP 16; TEMP 36.8; O2SAT 100
[2020-09-10 07:00] VITALS: BMI 28.5
[2020-09-10] MEDS: Sertraline HCL 100 MG TABLET PO (08:24)
[2020-09-10] MEDS: Fenofibrate 54 MG TABLET PO (08:24)
[2020-09-10] MEDS: Omeprazole 20 MG CAPSULE.DR PO (08:24)
[2020-09-10] MEDS: Cyanocobalamin (Vitamin B-12) 1,000 MCG TABLET 1000 MCG PO (08:24)
[2020-09-10 08:26] VITALS: BP 119/61; PULSE 70
[2020-09-10] MEDS: Metoprolol Succinate ER 25 MG TAB.ER.24H PO (08:26)
[2020-09-10] MEDS: NeoMY/Polymyx/Dexameth Oph Sus 5 ML BOTTLE 1 DROP EYE-BOTH ×4 (08:32→20:12)
--- NOTE | 2020-09-10 15:19 | P.PNPSI_ITS ---
Subjective Subjective Date of Service: 09/10/20 Reason For Visit: Schizophrenia, SI, Alcohol,Cocaine Abuse Subjective Notes: Conditional Voluntary Interim History: Reports Klonopin to be helpful. Asks if it is possible to divide the dosing as anxiety persists. Medication Compliance: Yes Side effects from medications: No Attending Groups: No Review of Systems Reports behavioral changes Psychiatric: Reports abnormal sleep pattern (cycle reversal-sleeps during the day), Reports anxiety and Reports behavioral changes Mental Status Exam Mental Status Exam Patient Appearance: Fatigued Patient Orientation: Person, Place, Time and Situation Level of Consciousness: Awake, Appropriate and Alert Patient Behavior: Hyperactive (at times), Cooperative, Anxious and Impulsive (per team report and bizarre at times) Mood Description: Anxious, Labile, Nervous and Apprehensive Affect Description: Labile Patient Cognition Impaired: No Ability to Follow Directions: Good Speech Pattern: Appropriate and Spontaneous Speech Memory Description: Intact Hallucinations: None Delusions: Not Present Thought Process: Distracted Thought Content: positive for [place] Depressive Symptoms: Increased Anxiety Judgement: Fair Diagnostics Vital Signs (24Hr): Vital Signs - 24 hr 09/09/20 18:00 09/10/20 06:25 09/10/20 08:26 Temperature 98.2 F 98.3 F Pulse Rate 84 70 70 Respiratory Rate 16 Blood Pressure 124/72 119/61 119/61 Pulse Oximetry 100 Body Mass Index 28.5 Labs Results: 09/09/20 17:59 09/09/20 17:59 Labs: Laboratory Results - last 48 hr 09/09/20 09/09/20 09/09/20 17:59 17:59 17:59 WBC 5.7 RBC 4.89 Hgb 16.0 Hct 45.7 MCV 93.5 MCH 32.7 MCHC 35.0 RDW 12.4 Plt Count 218 MPV 9.8 Immature Gran % (Auto) 0.2 Neut % (Auto) 45.0 Lymph % (Auto) 34.0 [place] % (Auto) 18.9 H Eos % (Auto) 1.4 Baso % (Auto) 0.5 Lymph # (Auto) 1.9 [place] # (Auto) 1.1 Eos # (Auto) 0.1 Baso # (Auto) 0.0 Abs Immat Gran (auto) 0.01 Absolute Neuts (auto) 2.6 Absolute Nucleated RBC 0.000 Nucleated RBC % (auto) 0.0 Sodium 140 Potassium 4.1 Chloride 106 Carbon Dioxide 26 Anion Gap 12 BUN 12 D Creatinine 0.96 Estim Creat Clear Calc 90.2 Estimated GFR > 60 Random Glucose 116 H Estimat Average Glucose 103 Hemoglobin A1c % 5.2 Calcium 9.1 Total Bilirubin 0.4 AST 36 ALT 73 H Alkaline Phosphatase 59 D Total Protein 8.2 H Albumin 4.6 Triglycerides 284 Cholesterol 220 LDL Cholesterol, Calc 133 HDL Cholesterol 31 Vitamin B12 Folate TSH 3.11 09/09/20 17:59 WBC RBC Hgb Hct MCV MCH MCHC RDW Plt Count MPV Immature Gran % (Auto) Neut % (Auto) Lymph % (Auto) [place] % (Auto) Eos % (Auto) Baso % (Auto) Lymph # (Auto) [place] # (Auto) Eos # (Auto) Baso # (Auto) Abs Immat Gran (auto) Absolute Neuts (auto) Absolute Nucleated RBC Nucleated RBC % (auto) Sodium Potassium Chloride Carbon Dioxide Anion Gap BUN Creatinine Estim Creat Clear Calc Estimated GFR Random Glucose Estimat Average Glucose Hemoglobin A1c % Calcium Total Bilirubin AST ALT Alkaline Phosphatase Total Protein Albumin Triglycerides Cholesterol LDL Cholesterol, Calc HDL Cholesterol Vitamin B12 742 Folate 15.0 TSH Medications Medications Current Medications Generic Name Dose Route Start Last Admin Trade Name Freq PRN Reason Stop Dose Admin Acetaminophen 325 mg 08/31/20 19:00 09/09/20 08:30 Acetaminophen 325 Mg Tablet PO 325 mg Q6H PRN Administration Headache/Pain Mild Scale (1-3) Al Hydroxide/Mg Hydroxide 30 ml 08/31/20 19:00 Magnesium Hydrox/Alum Hydrox 30 Ml Oral.Susp PO Q6H PRN Heartburn/Nausea Clonazepam 0.5 mg 09/09/20 21:00 09/09/20 20:36 Clonazepam 0.5 Mg Tablet PO 0.5 mg BEDTIME CLARITA Administration Cyanocobalamin 1,000 mcg 08/30/20 09:00 09/10/20 08:24 Cyanocobalamin (Vitamin B-12) 1,000 Mcg Tablet PO 1,000 mcg DAILY CLARITA Administration Fenofibrate 54 mg 09/04/20 09:00 09/10/20 08:24 Fenofibrate 54 Mg Tablet PO 54 mg DAILY CLARITA Administration Hydroxyzine HCl 75 mg 08/29/20 21:00 09/09/20 22:18 Hydroxyzine Hcl 25 Mg Tablet PO 75 mg BEDTIME CLARITA Administration Hydroxyzine HCl 25 mg 08/31/20 19:00 09/07/20 02:35 Hydroxyzine Hcl 25 Mg Tablet PO 25 mg BEDTIME PRN Administration Anxiety Hydroxyzine HCl 25 mg 09/08/20 16:38 09/10/20 12:30 Hydroxyzine Hcl 25 Mg Tablet PO 25 mg Q4H PRN Administration Anxiety Magnesium Hydroxide 30 ml 08/31/20 19:00 Milk Of Magnesia 30 Ml Oral.Susp PO DAILY PRN Constipation Metoprolol Succinate 25 mg 08/30/20 09:00 09/10/20 08:26 Metoprolol Succinate Er 25 Mg Tab.Er.24h PO 25 mg DAILY CLARITA Administration Protocol Multivitamins/Minerals 1 tab 09/02/20 09:00 09/10/20 08:24 Multivitamin With Minerals Tablet PO 1 tab DAILY CLARITA Administration Neomycin/Polymyxin/Dexamethasone 1 drop 09/09/20 17:00 09/10/20 12:31 Neomy/Polymyx/Dexameth Oph Melia 5 Ml Bottle EYE-BOTH 09/24/20 00:00 1 drop QID CLARITA Administration Nicotine 14 mg 08/31/20 19:00 Nicotine 14 Mg Patch.Td24 TRANSDERMA DAILY PRN Nicotine Cravings Nicotine Polacrilex 2 mg 08/31/20 19:00 Nicotine Polacrilex 2 Mg Gum BUCCAL Q2H PRN Nicotine Cravings Olanzapine 5 mg 09/09/20 21:00 09/09/20 22:18 Olanzapine 5 Mg Tablet PO 5 mg BEDTIME CLARITA Administration Omeprazole 20 mg 09/08/20 09:00 09/10/20 08:24 Omeprazole 20 Mg Capsule.Dr PO 20 mg DAILY CLARITA Administration Sertraline HCl 100 mg 09/04/20 09:00 09/10/20 08:24 Sertraline Hcl 100 Mg Tablet PO 100 mg DAILY CLARITA Administration Trazodone HCl 50 mg 08/31/20 19:00 09/10/20 03:04 Trazodone Hcl 50 Mg Tablet PO 50 mg BEDTIME PRN Administration Insomnia Allergies Allergies Allergy/AdvReac Type Severity Reaction Status Date / Time Penicillins [PENICILLINS] Allergy Unknown UNKNOWN Verified 08/29/20 05:15 Assessment & Plan Assessment & Plan (1) Severe recurrent major depression: Qualifiers: Psychotic features: with psychotic features Qualified Code(s): F33.3 - Major depressive disorder, recurrent, severe with psychotic symptoms Status: Acute Code(s): F33.2 - Major depressive disorder, recurrent severe without psychotic features Assessment and Plan: -Decrease Sertraline to 50 mg daily -Valproate ER 500 mg hs -Increase Klonopin to 0.5 mg bid (2) Schizophrenia, acute: Status: Acute Code(s): F23 - Brief psychotic disorder Assessment and Plan: -Continue Olanzapine (3) Cocaine abuse: Status: Acute Code(s): F14.10 - Cocaine abuse, uncomplicated (4) Alcohol abuse: Status: Acute Code(s): F10.10 - Alcohol abuse, uncomplicated Greater than 50% of the session was spent on counseling and/or coordination of care Patient educated on: medication risk/benefits Informed Consent: understands and further education needed Reason for contiued inpatient stay Substantial Risk for: harm to self, inability to function and rapid decompensation
[2020-09-10 18:00] VITALS: BP 111/58; PULSE 75; TEMP 36.3
[2020-09-10] MEDS: hydrOXYzine HCL 25 MG TABLET 75 MG PO (20:11)
[2020-09-10] MEDS: Divalproex Sodium ER 500 MG TAB.ER.24H PO (20:11)
[2020-09-10] MEDS: OLANZapine 5 MG TABLET PO (20:12)
[2020-09-10] MEDS: clonazePAM 0.5 MG TABLET PO (20:12)
[2020-09-11] MEDS: traZODone HCL 50 MG TABLET PO ×3 (01:10→23:43)
[2020-09-11] MEDS: hydrOXYzine HCL 25 MG TABLET PO ×3 (06:16→23:43)
[2020-09-11 06:40] VITALS: BP 121/88; PULSE 83; RESP 16; O2SAT 100
[2020-09-11] MEDS: Acetaminophen 325 MG TABLET PO ×3 (07:14→20:41)
[2020-09-11] MEDS: Fenofibrate 54 MG TABLET PO (07:50)
[2020-09-11 07:51] VITALS: BP 121/88; PULSE 83
[2020-09-11] MEDS: NeoMY/Polymyx/Dexameth Oph Sus 5 ML BOTTLE 1 DROP EYE-BOTH ×4 (07:51→20:39)
[2020-09-11] MEDS: Omeprazole 20 MG CAPSULE.DR PO (07:51)
[2020-09-11] MEDS: Sertraline HCL 50 MG TABLET PO (07:51)
[2020-09-11] MEDS: Cyanocobalamin (Vitamin B-12) 1,000 MCG TABLET 1000 MCG PO (07:51)
[2020-09-11] MEDS: Metoprolol Succinate ER 25 MG TAB.ER.24H PO (07:51)
[2020-09-11] MEDS: clonazePAM 0.5 MG TABLET PO ×2 (07:51→20:41)
[2020-09-11 18:00] VITALS: BP 112/68; PULSE 82; TEMP 36.6
[2020-09-11] MEDS: OLANZapine 5 MG TABLET PO (20:41)
[2020-09-11] MEDS: hydrOXYzine HCL 25 MG TABLET 75 MG PO (20:41)
[2020-09-11] MEDS: Divalproex Sodium ER 500 MG TAB.ER.24H PO (20:41)
--- NOTE | 2020-09-11 23:55 | HO.PSYCHPN ---
Subjective Subjective Date of Service: 09/11/20 Reason For Visit: Schizophrenia, SI, Alcohol,Cocaine Abuse Subjective Notes: Conditional Voluntary Interim History: patient flat isolative complains of unspecified anxiety Medication Compliance: Yes Review of Systems Reports behavioral changes Psychiatric: Reports behavioral changes Mental Status Exam Mental Status Exam Patient Appearance: Fatigued Patient Orientation: Person, Place, Time and Situation Level of Consciousness: Awake, Appropriate and Alert Patient Behavior: Hyperactive (at times), Cooperative, Anxious and Impulsive (per team report and bizarre at times) Mood Description: Anxious, Labile, Nervous and Apprehensive Affect Description: Labile Patient Cognition Impaired: No Ability to Follow Directions: Good Speech Pattern: Appropriate and Spontaneous Speech Memory Description: Intact Hallucinations: None Delusions: Not Present Thought Process: Distracted Thought Content: positive for [place] Depressive Symptoms: Increased Anxiety Judgement: Fair Diagnostics Vital Signs (24Hr): Vital Signs - 24 hr 09/11/20 06:40 09/11/20 07:51 09/11/20 18:00 Temperature 97.8 F Pulse Rate 83 83 82 Respiratory Rate 16 Blood Pressure 121/88 121/88 112/68 Pulse Oximetry 100 Body Mass Index 28.5 Labs Results: 09/09/20 17:59 09/09/20 17:59 Medications Medications Current Medications Generic Name Dose Route Start Last Admin Trade Name Freq PRN Reason Stop Dose Admin Acetaminophen 325 mg 08/31/20 19:00 09/11/20 20:41 Acetaminophen 325 Mg Tablet PO 325 mg Q6H PRN Administration Headache/Pain Mild Scale (1-3) Al Hydroxide/Mg Hydroxide 30 ml 08/31/20 19:00 Magnesium Hydrox/Alum Hydrox 30 Ml Oral.Susp PO Q6H PRN Heartburn/Nausea Clonazepam 0.5 mg 09/10/20 21:00 09/11/20 20:41 Clonazepam 0.5 Mg Tablet PO 0.5 mg BID CLARITA Administration Cyanocobalamin 1,000 mcg 08/30/20 09:00 09/11/20 07:51 Cyanocobalamin (Vitamin B-12) 1,000 Mcg Tablet PO 1,000 mcg DAILY CLARITA Administration Divalproex Sodium 500 mg 09/10/20 21:00 09/11/20 20:41 Divalproex Sodium Er 500 Mg Tab.Er.24h PO 500 mg BEDTIME CLARITA Administration Fenofibrate 54 mg 09/04/20 09:00 09/11/20 07:50 Fenofibrate 54 Mg Tablet PO 54 mg DAILY CLARITA Administration Hydroxyzine HCl 75 mg 08/29/20 21:00 09/11/20 20:41 Hydroxyzine Hcl 25 Mg Tablet PO 75 mg BEDTIME CLARITA Administration Hydroxyzine HCl 25 mg 08/31/20 19:00 09/07/20 02:35 Hydroxyzine Hcl 25 Mg Tablet PO 25 mg BEDTIME PRN Administration Anxiety Hydroxyzine HCl 25 mg 09/08/20 16:38 09/11/20 23:43 Hydroxyzine Hcl 25 Mg Tablet PO 25 mg Q4H PRN Administration Anxiety Magnesium Hydroxide 30 ml 08/31/20 19:00 Milk Of Magnesia 30 Ml Oral.Susp PO DAILY PRN Constipation Metoprolol Succinate 25 mg 08/30/20 09:00 09/11/20 07:51 Metoprolol Succinate Er 25 Mg Tab.Er.24h PO 25 mg DAILY CLARITA Administration Protocol Multivitamins/Minerals 1 tab 09/02/20 09:00 09/11/20 07:51 Multivitamin With Minerals Tablet PO 1 tab DAILY CLARITA Administration Neomycin/Polymyxin/Dexamethasone 1 drop 09/09/20 17:00 09/11/20 20:39 Neomy/Polymyx/Dexameth Oph Melia 5 Ml Bottle EYE-BOTH 09/24/20 00:00 1 drop QID CLARITA Administration Nicotine 14 mg 08/31/20 19:00 Nicotine 14 Mg Patch.Td24 TRANSDERMA DAILY PRN Nicotine Cravings Nicotine Polacrilex 2 mg 08/31/20 19:00 Nicotine Polacrilex 2 Mg Gum BUCCAL Q2H PRN Nicotine Cravings Olanzapine 5 mg 09/09/20 21:00 09/11/20 20:41 Olanzapine 5 Mg Tablet PO 5 mg BEDTIME CLARITA Administration Omeprazole 20 mg 09/08/20 09:00 09/11/20 07:51 Omeprazole 20 Mg Capsule.Dr PO 20 mg DAILY CLARITA Administration Sertraline HCl 50 mg 09/11/20 09:00 09/11/20 07:51 Sertraline Hcl 50 Mg Tablet PO 50 mg DAILY CLARITA Administration Trazodone HCl 50 mg 08/31/20 19:00 09/11/20 23:43 Trazodone Hcl 50 Mg Tablet PO 50 mg BEDTIME PRN Administration Insomnia Allergies Allergies Allergy/AdvReac Type Severity Reaction Status Date / Time Penicillins [PENICILLINS] Allergy Unknown UNKNOWN Verified 08/29/20 05:15 Assessment & Plan Assessment & Plan (1) Severe recurrent major depression: Qualifiers: Psychotic features: with psychotic features Qualified Code(s): F33.3 - Major depressive disorder, recurrent, severe with psychotic symptoms Status: Acute Code(s): F33.2 - Major depressive disorder, recurrent severe without psychotic features Assessment and Plan: continue sertraline (2) Schizophrenia, acute: Status: Acute Code(s): F23 - Brief psychotic disorder Assessment and Plan: continue Zyprexa consider increase dose (3) Conjunctivitis: Qualifiers: Conjunctivitis type: unspecified Laterality: bilateral Qualified Code(s): H10.9 - Unspecified conjunctivitis Status: Acute Code(s): H10.9 - Unspecified conjunctivitis Greater than 50% of the session was spent on counseling and/or coordination of care Reason for contiued inpatient stay Substantial Risk for: harm to self and rapid decompensation
[2020-09-12] MEDS: Acetaminophen 325 MG TABLET PO (05:54)
[2020-09-12 05:55] VITALS: BP 119/77; PULSE 81; RESP 18; TEMP 36.4; O2SAT 97
[2020-09-12] MEDS: hydrOXYzine HCL 25 MG TABLET PO ×3 (05:55→23:13)
[2020-09-12] MEDS: Sertraline HCL 50 MG TABLET PO (08:00)
[2020-09-12] MEDS: Metoprolol Succinate ER 25 MG TAB.ER.24H PO (08:00)
[2020-09-12] MEDS: Cyanocobalamin (Vitamin B-12) 1,000 MCG TABLET 1000 MCG PO (08:00)
[2020-09-12] MEDS: Nicotine Polacrilex 2 MG GUM BUCCAL (08:00)
[2020-09-12] MEDS: clonazePAM 0.5 MG TABLET PO ×2 (08:00→20:12)
[2020-09-12] MEDS: Omeprazole 20 MG CAPSULE.DR PO (08:00)
[2020-09-12] MEDS: Fenofibrate 54 MG TABLET PO (08:00)
[2020-09-12] MEDS: NeoMY/Polymyx/Dexameth Oph Sus 5 ML BOTTLE 1 DROP EYE-BOTH ×4 (08:03→20:09)
[2020-09-12] MEDS: Ibuprofen 400 MG TABLET PO ×2 (17:01→23:13)
[2020-09-12 18:00] VITALS: BP 108/59; PULSE 83; TEMP 36.3
[2020-09-12] MEDS: Divalproex Sodium ER 500 MG TAB.ER.24H PO (20:12)
[2020-09-12] MEDS: hydrOXYzine HCL 25 MG TABLET 75 MG PO (20:12)
[2020-09-12] MEDS: OLANZapine 5 MG TABLET PO (20:13)
[2020-09-12] MEDS: traZODone HCL 50 MG TABLET PO (20:13)
--- NOTE | 2020-09-12 23:25 | P.PNPSI_ITS ---
Subjective Subjective Date of Service: 09/12/20 Reason For Visit: Schizophrenia, SI, Alcohol,Cocaine Abuse Subjective Notes: Conditional Voluntary Interim History: pt with diurnal mood variation poor sleep Medication Compliance: Yes Side effects from medications: Yes Review of Systems Review of Systems Denies any recent fever chills or decrease in appetite ENT See HPI respiratory denies any shortness of breath coverage production cardiovascular no chest pain gastrointestinal denies nausea or vomiting musculoskeletal denies any joint pain or swelling neuropsych denies any weakness or seizures all other systems reviewed are negative Reports behavioral changes Psychiatric: Reports behavioral changes Mental Status Exam Mental Status Exam Patient Appearance: Fatigued Patient Orientation: Person, Place, Time and Situation Level of Consciousness: Awake, Appropriate and Alert Patient Behavior: Hyperactive (at times), Cooperative, Anxious and Impulsive (per team report and bizarre at times) Mood Description: Anxious, Labile, Nervous and Apprehensive Affect Description: Labile Patient Cognition Impaired: No Ability to Follow Directions: Good Speech Pattern: Appropriate and Spontaneous Speech Memory Description: Intact Hallucinations: None Delusions: Not Present Thought Process: Distracted Thought Content: positive for [place] Depressive Symptoms: Increased Anxiety Judgement: Fair Diagnostics Vital Signs (24Hr): Vital Signs - 24 hr 09/12/20 05:55 09/12/20 18:00 Temperature 97.6 F 97.4 F Pulse Rate 81 83 Respiratory Rate 18 Blood Pressure 119/77 108/59 L Pulse Oximetry 97 Body Mass Index 28.5 Labs Results: 09/09/20 17:59 09/09/20 17:59 Medications Medications Current Medications Generic Name Dose Route Start Last Admin Trade Name Freq PRN Reason Stop Dose Admin Acetaminophen 325 mg 08/31/20 19:00 09/12/20 05:54 Acetaminophen 325 Mg Tablet PO 325 mg Q6H PRN Administration Headache/Pain Mild Scale (1-3) Al Hydroxide/Mg Hydroxide 30 ml 08/31/20 19:00 Magnesium Hydrox/Alum Hydrox 30 Ml Oral.Susp PO Q6H PRN Heartburn/Nausea Clonazepam 0.5 mg 09/10/20 21:00 09/12/20 20:12 Clonazepam 0.5 Mg Tablet PO 0.5 mg BID CLARITA Administration Cyanocobalamin 1,000 mcg 08/30/20 09:00 09/12/20 08:00 Cyanocobalamin (Vitamin B-12) 1,000 Mcg Tablet PO 1,000 mcg DAILY CLARITA Administration Divalproex Sodium 750 mg 09/13/20 21:00 Divalproex Sodium Er 250 Mg Tab.Er.24h PO BEDTIME CLARITA Fenofibrate 54 mg 09/04/20 09:00 09/12/20 08:00 Fenofibrate 54 Mg Tablet PO 54 mg DAILY CLARITA Administration Hydroxyzine HCl 75 mg 08/29/20 21:00 09/12/20 20:12 Hydroxyzine Hcl 25 Mg Tablet PO 75 mg BEDTIME CLARITA Administration Hydroxyzine HCl 25 mg 08/31/20 19:00 09/07/20 02:35 Hydroxyzine Hcl 25 Mg Tablet PO 25 mg BEDTIME PRN Administration Anxiety Hydroxyzine HCl 25 mg 09/08/20 16:38 09/12/20 23:13 Hydroxyzine Hcl 25 Mg Tablet PO 25 mg Q4H PRN Administration Anxiety Ibuprofen 400 mg 09/12/20 11:03 09/12/20 23:13 Ibuprofen 400 Mg Tablet PO 400 mg Q6H PRN Administration Pain, Moderate (Pain Scale 4-6 Magnesium Hydroxide 30 ml 08/31/20 19:00 Milk Of Magnesia 30 Ml Oral.Susp PO DAILY PRN Constipation Metoprolol Succinate 25 mg 08/30/20 09:00 09/12/20 08:00 Metoprolol Succinate Er 25 Mg Tab.Er.24h PO 25 mg DAILY CLARITA Administration Protocol Multivitamins/Minerals 1 tab 09/02/20 09:00 09/12/20 08:00 Multivitamin With Minerals Tablet PO 1 tab DAILY CLARITA Administration Neomycin/Polymyxin/Dexamethasone 1 drop 09/09/20 17:00 09/12/20 20:09 Neomy/Polymyx/Dexameth Oph Melia 5 Ml Bottle EYE-BOTH 09/24/20 00:00 1 drop QID CLARITA Administration Nicotine 14 mg 08/31/20 19:00 Nicotine 14 Mg Patch.Td24 TRANSDERMA DAILY PRN Nicotine Cravings Nicotine Polacrilex 2 mg 08/31/20 19:00 09/12/20 08:00 Nicotine Polacrilex 2 Mg Gum BUCCAL 2 mg Q2H PRN Administration Nicotine Cravings Olanzapine 5 mg 09/09/20 21:00 09/12/20 20:13 Olanzapine 5 Mg Tablet PO 5 mg BEDTIME CLARITA Administration Omeprazole 20 mg 09/08/20 09:00 09/12/20 08:00 Omeprazole 20 Mg Capsule.Dr PO 20 mg DAILY CLARITA Administration Sertraline HCl 50 mg 09/11/20 09:00 09/12/20 08:00 Sertraline Hcl 50 Mg Tablet PO 50 mg DAILY CLARITA Administration Trazodone HCl 50 mg 08/31/20 19:00 09/12/20 20:13 Trazodone Hcl 50 Mg Tablet PO 50 mg BEDTIME PRN Administration Insomnia Allergies Allergies Allergy/AdvReac Type Severity Reaction Status Date / Time Penicillins [PENICILLINS] Allergy Unknown UNKNOWN Verified 08/29/20 05:15 Assessment & Plan Assessment & Plan (1) Severe recurrent major depression: Qualifiers: Psychotic features: with psychotic features Qualified Code(s): F33.3 - Major depressive disorder, recurrent, severe with psychotic symptoms Status: Acute Code(s): F33.2 - Major depressive disorder, recurrent severe without psychotic features Assessment and Plan: ?N hx of bipolar dx can inc depakote (2) Schizophrenia, acute: Status: Acute Code(s): F23 - Brief psychotic disorder Assessment and Plan: continue Zyprexa consider increase dose (3) Conjunctivitis: Qualifiers: Conjunctivitis type: unspecified Laterality: bilateral Qualified Code(s): H10.9 - Unspecified conjunctivitis Status: Acute Code(s): H10.9 - Unspecified conjunctivitis Greater than 50% of the session was spent on counseling and/or coordination of care
[2020-09-13] MEDS: traZODone HCL 50 MG TABLET PO (00:45)
[2020-09-13] MEDS: hydrOXYzine HCL 25 MG TABLET PO ×4 (00:46→17:05)
[2020-09-13] MEDS: Ibuprofen 400 MG TABLET PO ×3 (04:17→21:31)
[2020-09-13 06:33] VITALS: BP 123/75; PULSE 75; RESP 16; TEMP 36.5; O2SAT 98
[2020-09-13] MEDS: clonazePAM 0.5 MG TABLET PO (08:10)
[2020-09-13] MEDS: Fenofibrate 54 MG TABLET PO (08:10)
[2020-09-13] MEDS: Sertraline HCL 50 MG TABLET PO (08:10)
[2020-09-13] MEDS: Omeprazole 20 MG CAPSULE.DR PO (08:10)
[2020-09-13] MEDS: Cyanocobalamin (Vitamin B-12) 1,000 MCG TABLET 1000 MCG PO (08:10)
[2020-09-13 08:11] VITALS: BP 123/75; PULSE 75
[2020-09-13] MEDS: NeoMY/Polymyx/Dexameth Oph Sus 5 ML BOTTLE 1 DROP EYE-BOTH ×4 (08:11→21:31)
[2020-09-13] MEDS: Metoprolol Succinate ER 25 MG TAB.ER.24H PO (08:11)
[2020-09-13] MEDS: Nicotine Polacrilex 2 MG GUM BUCCAL ×2 (15:44→22:16)
[2020-09-13 21:25] VITALS: BP 118/70; PULSE 85; TEMP 36.3
[2020-09-13] MEDS: OLANZapine 5 MG TABLET 10 MG PO (21:30)
[2020-09-13] MEDS: hydrOXYzine HCL 25 MG TABLET 75 MG PO (21:30)
[2020-09-13] MEDS: clonazePAM 1 MG TABLET PO (21:31)
--- NOTE | 2020-09-13 22:44 | P.PNPSI_ITS ---
Subjective Subjective Date of Service: 09/13/20 Reason For Visit: Schizophrenia, SI, Alcohol,Cocaine Abuse Interim History: patient complains of anxiety mood instability difficulty with sleep altered sleep-wake cycle Review of Systems Reports behavioral changes Psychiatric: Reports behavioral changes Mental Status Exam Mental Status Exam Patient Appearance: Fatigued Patient Orientation: Person, Place, Time and Situation Level of Consciousness: Awake, Appropriate and Alert Patient Behavior: Hyperactive (at times), Cooperative, Anxious and Impulsive (per team report and bizarre at times) Mood Description: Anxious, Labile, Nervous and Apprehensive Affect Description: Labile Patient Cognition Impaired: No Ability to Follow Directions: Good Speech Pattern: Appropriate and Spontaneous Speech Memory Description: Intact Hallucinations: None Delusions: Not Present Thought Process: Distracted Thought Content: positive for [place] Depressive Symptoms: Increased Anxiety Judgement: Fair Diagnostics Vital Signs (24Hr): Vital Signs - 24 hr 09/13/20 06:33 09/13/20 08:11 Temperature 97.7 F Pulse Rate 75 75 Respiratory Rate 16 Blood Pressure 123/75 123/75 Pulse Oximetry 98 Body Mass Index 28.5 Labs Results: 09/09/20 17:59 09/09/20 17:59 Medications Medications Current Medications Generic Name Dose Route Start Last Admin Trade Name Freq PRN Reason Stop Dose Admin Acetaminophen 325 mg 08/31/20 19:00 09/12/20 05:54 Acetaminophen 325 Mg Tablet PO 325 mg Q6H PRN Administration Headache/Pain Mild Scale (1-3) Al Hydroxide/Mg Hydroxide 30 ml 08/31/20 19:00 Magnesium Hydrox/Alum Hydrox 30 Ml Oral.Susp PO Q6H PRN Heartburn/Nausea Clonazepam 1 mg 09/13/20 21:00 09/13/20 21:31 Clonazepam 1 Mg Tablet PO 1 mg BEDTIME CLARITA Administration Cyanocobalamin 1,000 mcg 08/30/20 09:00 09/13/20 08:10 Cyanocobalamin (Vitamin B-12) 1,000 Mcg Tablet PO 1,000 mcg DAILY CLARITA Administration Divalproex Sodium 1,000 mg 09/14/20 09:00 Divalproex Sodium Er 500 Mg Tab.Er.24h PO DAILY CLARITA Fenofibrate 54 mg 09/04/20 09:00 09/13/20 08:10 Fenofibrate 54 Mg Tablet PO 54 mg DAILY CLARITA Administration Hydroxyzine HCl 75 mg 08/29/20 21:00 09/13/20 21:30 Hydroxyzine Hcl 25 Mg Tablet PO 75 mg BEDTIME CLARITA Administration Hydroxyzine HCl 25 mg 08/31/20 19:00 09/13/20 00:46 Hydroxyzine Hcl 25 Mg Tablet PO 25 mg BEDTIME PRN Administration Anxiety Hydroxyzine HCl 25 mg 09/08/20 16:38 09/13/20 17:05 Hydroxyzine Hcl 25 Mg Tablet PO 25 mg Q4H PRN Administration Anxiety Ibuprofen 400 mg 09/12/20 11:03 09/13/20 21:31 Ibuprofen 400 Mg Tablet PO 400 mg Q6H PRN Administration Pain, Moderate (Pain Scale 4-6 Magnesium Hydroxide 30 ml 08/31/20 19:00 Milk Of Magnesia 30 Ml Oral.Susp PO DAILY PRN Constipation Metoprolol Succinate 25 mg 08/30/20 09:00 09/13/20 08:11 Metoprolol Succinate Er 25 Mg Tab.Er.24h PO 25 mg DAILY CLARITA Administration Protocol Multivitamins/Minerals 1 tab 09/02/20 09:00 09/13/20 08:11 Multivitamin With Minerals Tablet PO 1 tab DAILY CLARITA Administration Neomycin/Polymyxin/Dexamethasone 1 drop 09/09/20 17:00 09/13/20 21:31 Neomy/Polymyx/Dexameth Oph Melia 5 Ml Bottle EYE-BOTH 09/24/20 00:00 1 drop QID CLARITA Administration Nicotine 14 mg 08/31/20 19:00 Nicotine 14 Mg Patch.Td24 TRANSDERMA DAILY PRN Nicotine Cravings Nicotine Polacrilex 2 mg 08/31/20 19:00 09/13/20 22:16 Nicotine Polacrilex 2 Mg Gum BUCCAL 2 mg Q2H PRN Administration Nicotine Cravings Olanzapine 10 mg 09/13/20 21:00 09/13/20 21:30 Olanzapine 5 Mg Tablet PO 10 mg BEDTIME CLARITA Administration Omeprazole 20 mg 09/08/20 09:00 09/13/20 08:10 Omeprazole 20 Mg Capsule.Dr PO 20 mg DAILY CLARITA Administration Sertraline HCl 50 mg 09/11/20 09:00 09/13/20 08:10 Sertraline Hcl 50 Mg Tablet PO 50 mg DAILY CLARITA Administration Trazodone HCl 50 mg 08/31/20 19:00 09/13/20 00:45 Trazodone Hcl 50 Mg Tablet PO 50 mg BEDTIME PRN Administration Insomnia Allergies Allergies Allergy/AdvReac Type Severity Reaction Status Date / Time Penicillins [PENICILLINS] Allergy Unknown UNKNOWN Verified 08/29/20 05:15 Assessment & Plan Assessment & Plan (1) Severe recurrent major depression: Qualifiers: Psychotic features: with psychotic features Qualified Code(s): F33.3 - Major depressive disorder, recurrent, severe with psychotic symptoms Status: Acute Code(s): F33.2 - Major depressive disorder, recurrent severe without psychotic features Assessment and Plan: increase Depakote and increase Zyprexa (2) Schizophrenia, acute: Status: Acute Code(s): F23 - Brief psychotic disorder Greater than 50% of the session was spent on counseling and/or coordination of care
[2020-09-14] MEDS: traZODone HCL 50 MG TABLET PO ×2 (00:01→01:20)
[2020-09-14] MEDS: hydrOXYzine HCL 25 MG TABLET PO ×3 (00:01→10:41)
[2020-09-14] MEDS: Ibuprofen 400 MG TABLET PO ×2 (04:02→10:41)
[2020-09-14 05:25] VITALS: BP 114/68; PULSE 100; RESP 16; TEMP 36.3; O2SAT 97
[2020-09-14 08:31] VITALS: BP 114/68; PULSE 100
[2020-09-14] MEDS: Metoprolol Succinate ER 25 MG TAB.ER.24H PO (08:31)
[2020-09-14] MEDS: Divalproex Sodium ER 500 MG TAB.ER.24H 1000 MG PO (08:31)
[2020-09-14] MEDS: Fenofibrate 54 MG TABLET PO (08:32)
[2020-09-14] MEDS: Omeprazole 20 MG CAPSULE.DR PO (08:32)
[2020-09-14] MEDS: Cyanocobalamin (Vitamin B-12) 1,000 MCG TABLET 1000 MCG PO (08:32)
[2020-09-14] MEDS: Sertraline HCL 50 MG TABLET PO (08:32)
[2020-09-14] MEDS: NeoMY/Polymyx/Dexameth Oph Sus 5 ML BOTTLE 1 DROP EYE-BOTH (08:33)
--- NOTE | 2020-09-15 08:41 | PM.PSYDC ---
DS: Providers Provider Date of admission: 08/31/20 16:51 Date of discharge: 09/14/20 Primary care physician: [facility] Admitting clinician: Monica Bridges Attending physician on admission: Bk Olson Consults: 09/06/20 11:50 Consult to Hospitalist Stat Consulting Provider: Hospitalist Reason for consultation: pink eye with itcing and redness, pain both eyes 09/08/20 12:40 Consult to Hospitalist Routine Consulting Provider: Paula Arroyo Reason for consultation: Current conjunctivitis, pt reports significant eye pain and burning. Has provider been notified: No 09/08/20 20:58 Consult to Ophthalmology Routine Consulting Provider: Jean Love Reason for consultation: bilateral conjunctivitis failed antibiotic medicine rec optho eval Has provider been notified: No Attending physician on discharge: Monica Bridges Discharging clinician: Bk Olson DS: Diagnosis Discharge Diagnosis (1) Severe recurrent major depression: Status: Acute (2) Schizophrenia, acute: Status: Acute DS: Medications Discharge Medications Home Medications: Previous Rx's Medication Instructions Recorded clonazepam 1 mg PO BEDTIME #7 tab 09/14/20 clonidine HCl 0.1 mg PO BID #14 tab 09/14/20 divalproex 1,000 mg PO DAILY #14 tab 09/14/20 fenofibrate 54 mg PO DAILY #7 tab 09/14/20 metoprolol succinate 25 mg PO DAILY #7 tab 09/14/20 multivitamin,tx-minerals [Vitamins 1 tab PO DAILY #30 tab 09/14/20 and Minerals] olanzapine 10 mg PO BEDTIME #14 tab 09/14/20 sertraline 50 mg PO DAILY #7 tab 09/14/20 trazodone 50 mg PO BEDTIME PRN #7 tab 09/14/20 Discharge Plan Discharge Anticipated Discharge Date/Time: 09/14/20 16:00 Patient Disposition: Home, Self-Care Referrals: Chad Booth (therapist) [Other] - 09/21/20 1:30 pm (Telehealth appointment) [facility] [Other] (Call daily if you want a bed) [facility] [Other] (Call daily if you want a bed) Dr. Lee (psychiatrist) [Other] (Telehealth appointment) [facility] [Primary Care Provider] - Discharge Medications: New trazodone 50 mg Tablet 50 mg PO BEDTIME PRN (Reason: Insomnia) Qty: 7 RF: 4 olanzapine 5 mg Tablet 10 mg PO BEDTIME Qty: 14 RF: 4 clonazepam 1 mg Tablet 1 mg PO BEDTIME Qty: 7 RF: 4 divalproex 500 mg Tablet Extended Release 24 Hr 1,000 mg PO DAILY Qty: 14 RF: 4 sertraline 50 mg Tablet 50 mg PO DAILY Qty: 7 RF: 4 fenofibrate 54 mg Tablet 54 mg PO DAILY Qty: 7 RF: 4 Vitamins and Minerals Tablet 1 tab PO DAILY Qty: 30 RF: 0 metoprolol succinate 25 mg Tablet Extended Release 24 Hr 25 mg PO DAILY Qty: 7 RF: 0 Continued clonidine HCl 0.1 mg Tablet 0.1 mg PO BID Qty: 14 RF: 4 Discontinued lorazepam [Ativan] 1 mg Tablet 1 mg PO Q3-4H PRN (Reason: Anxiety) RF: 0 Atarax 75 mg PO BEDTIME RF: 0 cyanocobalamin (vitamin B-12) [Vitamin B-12] 1,000 mcg Tablet 1,000 mcg PO DAILY RF: 0 omeprazole 20 mg Capsule,Delayed Release(Dr/Ec) 20 mg PO DAILY RF: 0 metoprolol succinate 25 mg Tablet Extended Release 24 Hr 25 mg PO DAILY RF: 0 Discharge Orders: Discharge Order (Routine); Ordered 09/14/20 Ordered By: Monica Bridges Diet: advance to usual diet Activity on Discharge: As tolerated Patient Instructions: Cocaine Abuse (DC), Alcohol Use Disorder (DC) Stand Alone Forms: Community Support Discharge Date/Time: 09/14/20 12:57 Print Language: Belarusian Visit Report Forms: Patient Portal Discharge page Care Plan Goals: Sobriety Mood stability Compliance with medications Admission to [facility] for further addiction treatment Health Concerns: insomnia-practice sleep hygiene Plan of Treatment: Follow up with [facility]. Take medications as directed. Follow up with out patient therapy and medication appointments Practice sleep hygiene Maintain sobriety Attend recovery support groups. Mental Status Exam Mental Status Exam Patient Appearance: Appropriate Patient Orientation: Person, Place, Time and Situation Level of Consciousness: Awake and Appropriate Patient Behavior: Appropriate Mood Description: Happy Affect Description: Appropriate Patient Cognition Impaired: No Ability to Follow Directions: Good Speech Pattern: Clear and Spontaneous Speech Memory Description: Intact Hallucinations: None Delusions: Not Present Thought Process: Intact Thought Content: positive for Intact Judgement: Good Data Data Completed and Pending Completed studies during hospitalization [Text1]: 09/09/20 09/09/20 09/09/20 17:59 17:59 17:59 WBC 5.7 RBC 4.89 Hgb 16.0 Hct 45.7 MCV 93.5 MCH 32.7 MCHC 35.0 RDW 12.4 Plt Count 218 MPV 9.8 Immature Gran % (Auto) 0.2 Neut % (Auto) 45.0 Lymph % (Auto) 34.0 [place] % (Auto) 18.9 H Eos % (Auto) 1.4 Baso % (Auto) 0.5 Lymph # (Auto) 1.9 [place] # (Auto) 1.1 Eos # (Auto) 0.1 Baso # (Auto) 0.0 Abs Immat Gran (auto) 0.01 Absolute Neuts (auto) 2.6 Absolute Nucleated RBC 0.000 Nucleated RBC % (auto) 0.0 Sodium 140 Potassium 4.1 Chloride 106 Carbon Dioxide 26 Anion Gap 12 BUN 12 D Creatinine 0.96 Estim Creat Clear Calc 90.2 Estimated GFR > 60 Random Glucose 116 H Estimat Average Glucose 103 Hemoglobin A1c % 5.2 Calcium 9.1 Total Bilirubin 0.4 AST 36 ALT 73 H Alkaline Phosphatase 59 D Total Protein 8.2 H Albumin 4.6 Triglycerides 284 Cholesterol 220 LDL Cholesterol, Calc 133 HDL Cholesterol 31 Vitamin B12 Folate TSH 3.11 09/09/20 17:59 WBC RBC Hgb Hct MCV MCH MCHC RDW Plt Count MPV Immature Gran % (Auto) Neut % (Auto) Lymph % (Auto) [place] % (Auto) Eos % (Auto) Baso % (Auto) Lymph # (Auto) [place] # (Auto) Eos # (Auto) Baso # (Auto) Abs Immat Gran (auto) Absolute Neuts (auto) Absolute Nucleated RBC Nucleated RBC % (auto) Sodium Potassium Chloride Carbon Dioxide Anion Gap BUN Creatinine Estim Creat Clear Calc Estimated GFR Random Glucose Estimat Average Glucose Hemoglobin A1c % Calcium Total Bilirubin AST ALT Alkaline Phosphatase Total Protein Albumin Triglycerides Cholesterol LDL Cholesterol, Calc HDL Cholesterol Vitamin B12 742 Folate 15.0 TSH DS: Summary Hospital Course Hospital Course: 40 yo male, referred for admission by [facility] crisis team after presenting with SI, increases in symptoms of anxiety and depression, abuse of alcohol and cocaine to manage emotional pain, insomnia due to nightmares of suicide, and stopping his prescribed medication regime. Reports conflicts within his family which he declined to elaborate on except to report several relatives were in [place] and he was feeling isolated without them. During the admission, pt requested CSS transfer. administrative services coordinator applied for several beds, however, due to and holiday, beds were not readily available. Pt has been asked to call on 09/15 for availability. [facility] application for services was also filed during this admission by clinical social work therapist. Medically, pt was found to have triglyceride level of 490 during admission. Fenofibrate was initiated. In addition, pt developed conjunctivitis during admission which was treated without effect with Erythromycin 0.5%. As a result, he was seen in consultation with Dr. Love and Maxitrol drops were initiated with efficacy. Behaviorally, pt was labile throughout the admission, expressing symptoms of anxiety, depression, insomnia, nightmares. Olanzapine and Abilify were trialed, with Olanzapine having the most efficacy. Sertraline was titrated from 50 to 100 mg, however, pt reported an increase in anxiety and the dosage was tapered to 50 mg. Valproate ER was initiated and titrated to 1000 mg daily, Klonopin 1 mg HS was added. Clonidine 0.1 mg BID was continued for anxiety. Pt was provided education on sleep hygiene and encouraged to limit daytime napping. Time spent discussing smoking cessation with patient: more than 10 minutes Status at Discharge Cognitive/behavioral status at discharge: Euthymic Functional status at discharge: independent ambulation Overall status at discharge: patient is back to baseline Time Spent with Patient Time attestation: Total time spent providing and/or coordinating discharge services: Time spent: Greater than 30 minutes
== END 2020-09-14 12:57 | disposition home or self-care (01) | DRG 751 ==
LOC: HO.ED 08-31 16:47 → HO.PM5 08-31 16:59
PROVIDERS: Clinical Nurse Specialist Psychiatric/Mental Health, Adult; Admitting Provider Psychiatry & Neurology Psychiatry; Emergency Provider Student in an Organized Health Care Education/Training Program; Visit Provider Psychiatry & Neurology Psychiatry
DX: F33.2 Major depressive disorder, recurrent severe without psychotic features (principal); I95.9 Hypotension, unspecified; R45.851 Suicidal ideations; F23 Brief psychotic disorder; K21.9 Gastro-esophageal reflux disease without esophagitis; E78.1 Pure hyperglyceridemia; Z23 Encounter for immunization; F10.10 Alcohol abuse, uncomplicated; H10.33 Unspecified acute conjunctivitis, bilateral; F14.10 Cocaine abuse, uncomplicated; M19.90 Unspecified osteoarthritis, unspecified site; Z20.828 Contact with and (suspected) exposure to other viral communicable diseases; Z88.0 Allergy status to penicillin; Z79.899 Other long term (current) drug therapy
CPT/HCPCS: 36415; 80053; 80061; 80307; 80320; 81003; 82607; 82746; 83036; 84443; 85025; 87635; 90686; 90792; 93005; 99231; 99232; 99233; 99239; 99285